=== PATIENT | male | born 1970 | race Caucasian/White ===

== ENCOUNTER 2024-07-05 18:40 | Emergency (ER) | payer OTHER, SELFPAY ==
[2024-07-05 18:41] VITALS: BP 158/100; PULSE 63; RESP 18; TEMP 36.8; O2SAT 100; BMI 45.3
[2024-07-05 18:45] VITALS: BP 158/100; PULSE 63; RESP 16; TEMP 36.8; O2SAT 100
--- NOTE | 2024-07-05 18:48 | RAD_ITS ---
PROCEDURE: FINGER(S) MIN 2 VIEWS 07/05/2024 REASON FOR EXAM: 53-year-old male, 5TH FINGER SWELLING x1 week TECHNIQUE: 3 view(s) of the left 5th finger COMPARISON: None. FINDINGS: Bones: No acute osseous fracture. No aggressive osseous lesions. Joints: Normal alignment. Joint spaces preserved. No arthropathic features. Soft tissues: No radiopaque foreign body. RAD/Finger(s) Min 2 Views IMPRESSION: NEGATIVE FINGER SERIES Reading Location: [id number]
--- NOTE | 2024-07-05 18:49 | EDS_ITS ---
HPI <DELMI Larose - Last Filed: 07/05/24 20:35> History of Present Illness Chief Complaint: Upper Extremity Injury Narrative Narrative: Patient resenting today with swelling to his left fifth finger he has had for over a week. He went to urgent care today and they recommended he come here for evaluation for possible infection. He denies any injury to his finger. He did have a small abrasion just below his nailbed several days prior to the finger beginning to swell and that did resolve. He is right-handed. He has had no associated fevers or chills. He reports that he is healthy otherwise with no chronic medical conditions. PFSH <DELMI Larose - Last Filed: 07/05/24 20:35> [facility] Medical History no medical history Home Medications ?Medication ?Instructions ?Recorded ?Last Taken ?Type clindamycin HCl 300 mg capsule 300 mg PO Q6H 7 days #2 7 CAPSULES 07/05/24 Unknown Rx (Cleocin HCl) Allergy/AdvReac Type Severity Reaction Status Date / Time Penicillins (PCN) Allergy Severe Anaphylaxis Verified 07/05/24 18:40 Family History no significant family his Surgical History no surgical history Social History Smoking Status: Never smoker ROS <DELMI Larose - Last Filed: 07/05/24 20:35> ROS ED Constitutional Constitutional ED: Denies chills or fever(s) Cardiovascular Cardiovascular: Denies chest pain Respiratory/Chest Respiratory/Chest: Denies dyspnea Musculoskeletal Musculoskeletal: Reports arthralgias Integumentary Denies abscess, Abrasions or rash Neurologic Neurologic: Denies weakness EXAM <DELMI Larose - Last Filed: 07/05/24 20:35> Physical Exam Const Vital Signs: 07/05/24 18:41 07/05/24 18:45 Temperature 98.3 F 98.3 F Temperature Source Temporal Oral Pulse Rate 63 63 Respiratory Rate 18 16 Blood Pressure 158/100 H 158/100 H Blood Pressure Mean 119 119 Pulse Ox 100 100 Oxygen Delivery Method Room Air Room Air Positive well nourished, well developed and no apparent distress General Appearance ED: well developed HEENT Reports normocephalic and head/scalp atraumatic Mouth ED: Yes moist mucous membranes normal Eyes PERRL and EOMs intact bilaterally Neck full ROM and supple Chest Wall inspection of chest normal Resp normal respiratory effort and clear to auscultation bilaterally Cardio regular rate and regular rhythm GI soft to palpation, non-tender, non-distended and no masses Back/Spine normal ROM and normal to inspection Extremity full ROM Extremity Narrative: Edema to the left fifth finger without any erythema, warmth, fluctuance, nor overlying wounds. Patient is able to flex and extend at the MCP and PIP joints decreased range of motion at the DIP joint due to swelling. Minimal pain to palpation to the left fifth middle phalanx. Left radial pulse 2+, good cap refill, sensation intact. Neuro oriented x3, CN's II-XII intact bilaterally, moves all extremities, no focal motor deficits and no sensory deficits noted Sensorium / Orientation: awake and alert Psych mental status grossly normal and thought process normal Skin no rashes or lesions noted and no wounds [facility] <DELMI Larose - Last Filed: 07/05/24 20:35> [facility] Narrative Medical decision making narrative: Patient presenting today with swelling to the left pinky finger he has had for about 9 days. No known injury to the area. No open wounds or obvious signs of infection to the finger. He is otherwise neurovascularly intact. X-ray will be obtained. X-ray of the finger obtained to assess for foreign body/fracture and is negative. The attending did speak with Dr. Belle who recommends antibiotics to cover for cellulitis and having him follow-up in the office tomorrow. He will be started on clindamycin with first dose here. Exam is not consistent with acute flexor tenosynovitis, return instructions were discussed with him and patient discharged home in stable condition. I have personally performed a face to face assessment of the patient and have reviewed the LILA Note. I performed a substantive portion of the visit including all aspects of the following. My santiago findings include: History is [patient presents with pain and swelling to his right small finger x 1 week. He denies injury. States that he had a small scratch to the dorsum of the distal phalanx just proximal to the nail but did not think much of it and that resolved. 7 hard time flexing the digit at the DIP joint. Denies any other injuries. 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 He does have history of gout but never had in the hands.] Exam is [ESTEBAN, EOMI. Cranial nerves II through XII grossly intact. TMs clear. Mucous membranes moist. No adenopathy. Cardiovascular-regular rate and rhythm without murmur or ectopy Lungs-clear to auscultation, chest wall stable without crepitus or subcu emphysema Abdomen-normoactive bowel sounds, soft, nontender, no rebound or rigidity, no peritoneal signs. Extremities-intact ?4, normal range of motion, normal pulses, atraumatic]. Left hand-evaluation of the small finger does reveal some soft tissue swelling at the DIP joint with tenderness along the flexor tendon. Decreased range of motion at the DIP joint. No significant cellulitic changes noted. Neurovascular intact. Medical Decison Making [patient with pain and swelling to the DIP joint of the left small finger. No trauma. X-rays of the finger on my interpretation showed no foreign bodies or abnormalities. I discussed case with Dr. Belle and sent pictures. It is felt that we can at least initially manage him with p.o. antibiotics and he can see him in the hand clinic tomorrow. Patient really does not have pain with axial loading of the joint. Patient describes the pain more in the soft tissues rather than in the bony structures or joint itself.] Other additions or changes: [None] <Dr. Rupal Altman, DO - Last Filed: 07/05/24 19:12> [facility] Narrative Medical decision making narrative: Patient presenting today with swelling to the left pinky finger he has had for about 9 days. No known injury to the area. No open wounds or obvious signs of infection to the finger. He is otherwise neurovascularly intact. X-ray will be obtained. I have personally performed a face to face assessment of the patient and have reviewed the LILA Note. I performed a substantive portion of the visit including all aspects of the following. My santiago findings include: History is [patient presents with pain and swelling to his right small finger x 1 week. He denies injury. States that he had a small scratch to the dorsum of the distal phalanx just proximal to the nail but did not think much of it and that resolved. 7 hard time flexing the digit at the DIP joint. Denies any other injuries. 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 He does have history of gout but never had in the hands.] Exam is [BRODERICKPERRLA, EOMI. Cranial nerves II through XII grossly intact. TMs clear. Mucous membranes moist. No adenopathy. Cardiovascular-regular rate and rhythm without murmur or ectopy Lungs-clear to auscultation, chest wall stable without crepitus or subcu emphysema Abdomen-normoactive bowel sounds, soft, nontender, no rebound or rigidity, no peritoneal signs. Extremities-intact ?4, normal range of motion, normal pulses, atraumatic]. Left hand-evaluation of the small finger does reveal some soft tissue swelling at the DIP joint with tenderness along the flexor tendon. Decreased range of motion at the DIP joint. No significant cellulitic changes noted. Neurovascular intact. Medical Decison Making [patient with pain and swelling to the DIP joint of the left small finger. No trauma. X-rays of the finger on my interpretation showed no foreign bodies or abnormalities. I discussed case with Dr. Belle and sent pictures. It is felt that we can at least initially manage him with p.o. antibiotics and he can see him in the hand clinic tomorrow. Patient really does not have pain with axial loading of the joint. Patient describes the pain more in the soft tissues rather than in the bony structures or joint itself.] Other additions or changes: [None] Discharge Plan Triage Chief Complaint: Upper Extremity Injury ED Midlevel Provider: Lazara Zhang ED Provider: Rupal Altman Dx/Rx/DC Orders Clinical Impression: Cellulitis of finger Instructions: ED Cellulitis Prescriptions: New clindamycin HCl [Cleocin HCl] 300 mg capsule 300 mg PO Q6H 7 Days Qty: 27 0RF Primary Care Provider: Janie Steel Referrals: Janie Steel MD [Primary Care Provider] - Rylan Belle MD [Med Staff - Active Staff] - 1 Day for another exam Activity Restrictions/Additional Instructions: Follow-up with Dr. Belle, return for any worsening symptoms, fevers, or chills. Print Language: Maori Disposition Disposition: Home, Self Care Discharge Date/Time: 07/05/24 19:23
[2024-07-05] MEDS: Clindamycin HCl 150 MG Capsule 450 MG PO (19:21)
[2024-07-05 19:22] VITALS: BP 158/100; PULSE 63; RESP 16; TEMP 36.8; O2SAT 100
== END 2024-07-05 19:23 | disposition home or self-care (01) ==
PROVIDERS: Emergency Provider Emergency Medicine; PCP Family Medicine; Referring Provider Emergency Medicine; Visit Provider Emergency Medicine
DX: L03.012 Cellulitis of left finger (principal)
CPT/HCPCS: 73140; 99282

== ENCOUNTER 2025-03-27 07:12 | Emergency (ER) | payer OTHER, SELFPAY ==
[2025-03-27 07:13] VITALS: BP 167/98; PULSE 62; RESP 18; TEMP 36.6; O2SAT 97; BMI 44.1
--- NOTE | 2025-03-27 07:30 | CT_ITS ---
PROCEDURE: BRAIN/HEAD WITHOUT CONTRAST 03/27/2025 REASON FOR EXAM: Clinical history of hypertension TECHNIQUE: Procedure Code: CTBR Modality: CT Procedure: BRAIN/HEAD WITHOUT CONTRAST Coronal and Sagittal reconstruction series were provided. One or more dose reduction techniques were used (e.g., Automated exposure control, adjustment of the mA and/or kV according to patient size, use of iterative reconstruction technique. RADIATION DOSE SUMMARY: DLP: 812.98 MGycm COMPARISON: None available. FINDINGS: No acute hemorrhage. No acute infarct. No significant mass effect or brain herniation. The ventricular system and sulci/fissures are within normal limits of size and configuration for the patient's stated age. No extra-axial fluid collection. The basal cisterns are patent. The mastoid air cells are clear. Volume loss of the right maxillary sinus. Polypoid mucosal thickening in the left maxillary sinus. Right nasal septal deviation and spur. The calvarium appears intact. CT/Brain/Head without Contrast IMPRESSION: No CT evidence of acute intracranial hemorrhage, infarct, or significant mass e ffect. Reading Location: [id number]
--- NOTE | 2025-03-27 07:31 | EKG12_ITS ---
Test Reason : HTN Blood Pressure : */* mmHG Vent. Rate : 60 BPM Atrial Rate : 60 BPM P-R Int : 150 ms QRS Dur : 98 ms QT Int : 394 ms P-R-T Axes : 13 24 33 degrees QTcB Int : 394 ms Normal sinus rhythm Normal ECG Confirmed by Frandy Odom (Alberto), editor greeting card HEIKE MORAES ([id number]) on 03/29/2025 11:32:29 AM Also confirmed by Frandy Odom (Alberto), editor greeting card HEIKE MORAES ([id number]) on 03/30/2025 10:56:53 AM Referred By: EVELYN Confirmed By: Frandy Odom
[2025-03-27] MEDS: Tetracaine 0.5% Ophthalmic Bottle 1 DRP OPHTHALMIC (07:39)
[2025-03-27 07:52] LABS: Hematocrit 44.9 % (40-54); Hemoglobin 14.8 g/dL (13.0-16.5); Immature Granulocytes Count 0.020 X10^3/uL (0.0-0.0); Mean Corp Hgb Conc 33.0 g/dL (32-36); Mean Corpuscular Volume 86.7 fL (80-94); Mean Platelet Vol. 10.6 fl (6.2-12.0); NRBC Flagged by Analyzer 0 % (0-5); POSITIVE COUNT YES; RBC Distribution Width CV 13.1 % (11.6-14.6); RBC Distribution Width SD 41.1 fl (35.1-43.9); Red Blood Count 5.18 M/mm3 (4.6-6.2); White Blood Count 7.0 K/mm3 (4.4-11.0)
--- NOTE | 2025-03-27 07:55 | RAD_ITS ---
PROCEDURE: CHEST PA AND LATERAL 03/27/2025 REASON FOR EXAM: Clinical history of hypertension TECHNIQUE: Procedure Code: RADCXR Modality: DX Procedure: CHEST PA AND LATERAL COMPARISON: None available. FINDINGS: No focal lung consolidation, pneumothorax, or pleural effusion. The cardiomediastinal silhouette is within normal limits. The jv are within normal limits. Eventration of the left hemidiaphragm. An irregularly-shaped radiodensity overlying the anterior right 6th rib may reflect a bone island. Degenerative changes of the thoracic spine. RAD/Chest PA and Lateral IMPRESSION: No radiographic evidence of acute cardiopulmonary pathology. Reading Location: [id number]
--- NOTE | 2025-03-27 07:58 | EX.ED.DYSGE1 ---
HPI History of Present Illness Chief Complaint: Hypertension Narrative Narrative: Chief complaint and HPI: 54-year-old male with past medical history of HTN, ADHD on guanfacine presents for evaluation of symptomatic HTN. Patient states that he was previously on a blood pressure medication but this was stopped given that the PCP was using guanfacine as a dual therapy for his HTN and ADHD. Patient states for the past several months he has been noticing an increase in his blood pressure. States has been in the 160s. Patient states he did not follow-up with his primary care physician as he was waiting for his next appointment. Patient states since the elevation in his blood pressure he has been getting intermittent headaches, bilateral eye pressure with occasional blurry vision. He also endorses intermittent tinnitus. He denies any fever, chills, URI symptoms, chest pain. Patient states he has not seen the eye doctor since about October. Review of systems: See HPI Medications: As listed on the chart Allergies: As listed on the chart PFSH: Per chart Vital signs: As listed on the chart. Reviewed. Physical exam: Gen: A&O x3, NAD Head: Normocephalic, atraumatic Eye: No periorbital swelling or ecchymosis, no proptosis, PERRL, EOMI intact, no pain with extra ocular movements, no lacerations, no sclera chemosis or injection, no foreign body, no enophthalmos. Cornea clear, optic nerve with sharp margins, macula normal, no retinal hemorrhages. Intraocular pressures 17 bilaterally. ENT: TMs clear BL, moist mucous membranes, sinuses nontender Neck: Trachea midline, No JVD, full range of motion CV: RRR, no murmurs, no peripheral edema Resp: Lungs CTA BL, no w/r/c GI: Abd soft, non-distended, non-tender, no r/r/g Musc: Full ROM, no deformity Skin: Warm, dry Neuro: Alert, oriented, grossly intact, sensation intact Psych: Cooperative, appropriate mood and affect [facility] Medical History (Updated 03/27/25 @ 07:22 by Greta Alejo) Non-smoker Hypertension Cellulitis of finger Home Medications ?Medication ?Instructions ?Recorded ?Last Taken ?Type clindamycin HCl 300 mg capsule 300 mg PO Q6H 7 days #27 CAPSULES 07/05/24 Unknown Rx (Cleocin HCl) Allergy/AdvReac Type Severity Reaction Status Date / Time Penicillins (PCN) Allergy Severe Anaphylaxis Verified 03/27/25 07:16 Social History Smoking Status: Never smoker EXAM Physical Exam Const Vital Signs: 03/27/25 07:13 03/27/25 07:22 Temperature 97.8 F Temperature Source Temporal Pulse Rate 62 Respiratory Rate 18 Respiratory Pattern Normal Blood Pressure 167/98 H Blood Pressure Mean 121 Pulse Ox 97 Oxygen Delivery Method Room Air MDM MDM MDM Narrative Medical decision making narrative: 54-year-old male with past medical history of HTN, ADHD on guanfacine presents for evaluation of symptomatic HTN. Patient states that he was previously on a blood pressure medication but this was stopped given that the PCP was using guanfacine as a dual therapy for his HTN and ADHD. Patient states for the past several months he has been noticing an increase in his blood pressure. States has been in the 160s. Patient states since the elevation in his blood pressure he has been getting intermittent headaches, bilateral eye pressure with occasional blurry vision. He also endorses intermittent tinnitus. On presentation, patient no acute distress. Vitals are normal other than mild hypertension at 167/98. See physical exam findings. Differential diagnosis includes but is not limited to hypertension urgency, hypertension emergency, intracranial abnormality, electrolyte abnormality, arrhythmia. Physical exam is not consistent with glaucoma. Eye exam unremarkable. Patient needs to follow-up with an eye doctor. He confirmed understanding. HTN workup ordered including CT head. Will give 5 mg hydralazine for the blood pressure. CT of the brain shows no acute abnormality. Patient's visual acuity is 20/25 bilaterally, 20/40 left, 20/30 right. Patient again needs to see the eye doctor. CBC unremarkable. BNP unremarkable. CMP unremarkable. Troponin unremarkable. UA negative for UTI or protein. Patient's symptoms are likely secondary to hypertension. Will start him on hydrochlorothiazide as he believes he had this in the past. Will start him on 12.5 mg daily. Follow-up with his primary care physician. Monitor his blood pressure at home. He needs to follow-up with the eye doctor. Return precautions explained. He confirmed understand the plan. Patient will discharge home. EKG: Interpreted by me/EM physician: EKG shows normal sinus rhythm without any acute ischemic changes. Heart rate 60. QTc normal. Diagnostic: Interpreted by me/EM physician: Chest x-ray without pneumonia, effusion, cardiomegaly, pneumothorax. Radiology in agreement. Per radiology an irregularly-shaped radiodensity overlying the anterior right sixth rib may reflect a bone island. Impression: 1 Hypertension urgency 2.History of hypertension Lab Data Labs: Laboratory Results - last 24 hr 03/27/25 03/27/25 03/27/25 07:35 08:17 09:14 WBC 7.0 RBC 5.18 Hgb 14.8 Hct 44.9 MCV 86.7 MCH 28.6 MCHC 33.0 RDW Std Deviation 41.1 RDW Coeff of Hunter 13.1 Plt Count MPV 10.6 Immature Gran % (Auto) 0.300 Neut % (Auto) 57.1 Lymph % (Auto) 31.9 Isabella % (Auto) 7.4 Eos % (Auto) 2.6 Baso % (Auto) 0.7 Absolute Neuts (auto) 4.0 Absolute Lymphs (auto) 2.23 Nucleated RBC % 0 Differential Comment SCANNED Platelet Estimate ADEQUATE RBC Morphology NORM C+C Sodium Cancelled Cancelled 137 Potassium Cancelled Cancelled 4.1 Chloride Cancelled Cancelled 103 Carbon Dioxide Cancelled Cancelled 24.1 Anion Gap Cancelled Cancelled 10 BUN Cancelled Cancelled 15 Creatinine Cancelled Cancelled 1.17 Estim Creat Clear Calc Cancelled 104.84 Est GFR (MDRD) Non-Af Cancelled Cancelled 74 BUN/Creatinine Ratio Cancelled Cancelled 12.7 Glucose Cancelled Cancelled 93 Calcium Cancelled Cancelled 8.7 Total Bilirubin Cancelled Cancelled 0.72 AST Cancelled Cancelled 21 ALT Cancelled Cancelled 15 Alkaline Phosphatase Cancelled Cancelled 77 Troponin T High Sens Cancelled Cancelled < 6 NT pro BNP II 40 Total Protein Cancelled Cancelled 7.6 Albumin Cancelled Cancelled 3.9 Globulin Cancelled Cancelled 3.7 Albumin/Globulin Ratio Cancelled Cancelled 1.1 Radiography Diagnostic Testing: Clinical Impression(s) from Imaging Studies Brain CT 03/27/25 07:30 IMPRESSION: No CT evidence of acute intracranial hemorrhage, infarct, or significant mass effect. Reading Location: [id number] Chest X-Ray 03/27/25 07:55 IMPRESSION: No radiographic evidence of acute cardiopulmonary pathology. Reading Location: [facility] Discharge Plan Triage Chief Complaint: Hypertension ED Provider: Chas Olivarez Dx/Rx/DC Orders Prescriptions: No Action clindamycin HCl [Cleocin HCl] 300 mg capsule 300 mg PO Q6H 7 Days Qty: 27 0RF Primary Care Provider: Janie Steel Referrals: Janie Steel MD [Primary Care Provider, Medical] Print Language: Bengali
--- OUTSIDE RECORDS SUMMARY | 2025-03-27 08:05 | XMS RPT_ITS | CCD ---
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 Aneudy Foster Primary Care Provider Dr. Rupal Altman DO Referring Provider Dr. Rupal Altman DO Emergency Provider [phone] Aneudy Rooney MD Primary Care Provider ANEUDY ROONEY Primary Care Unavailable Aneudy Rooney MD Primary Care Provider ANEUDY ROONEY Primary Care Unavailable ANEUDY ROONEY Primary Care Unavailable NIA SYED Attending Unavailable NIA SYED Referring Unavailable ANEUDY ROONEY Primary Care Unavailable ANEUDY ROONEY Attending Unavailable ANEUDY ROONEY Primary Care Unavailable ANEUDY ROONEY Attending Unavailable ANEUDY ROONEY Primary Care Unavailable ANEUDY ROONEY Attending Unavailable ANEUDY ROONEY Primary Care Unavailable ANEUDY ROONEY Attending Unavailable ANEUDY ROONEY Primary Care Unavailable ANEUDY ROONEY Attending Unavailable ANEUDY ROONEY Primary Care Unavailable ANEUDY ROONEY Attending Unavailable ANEUDY ROONEY Primary Care Unavailable Aneudy Rooney Primary Care Unavailable Rylan Mosley Attending Unavailable Lazara Zhang Referring Unavailable Aneudy Rooney Primary Care Unavailable Rylan Mosley Attending Unavailable Aneudy Rooney Referring Unavailable Aneudy Rooney Primary Care Unavailable Rupal Altman Referring Unavailable Rupal Altman Attending Unavailable Aneudy Rooney Primary Care Unavailable Rylan Mosley Attending Unavailable Aneudy Rooney Referring Unavailable Allergies Allergy Classification Reported Allergen(s) Allergy Type Date of Onset Reaction(s) Facility (10 sources) Penicillins; Translations: [PENICILLINS] Propensity to adverse reactions 5 Anaphylaxis, Hives, Shortness of breath [facility] Work Phone: (1 source) Penicillins Allergy to substance 5 Anaphylaxis [facility] (3 sources) Penicillins Propensity to adverse reactions 5 Anaphylaxis, Hives, Shortness of breath [facility] Work Phone: (1 source) Penicillins Drug allergy (disorder) 5 [facility] Repository Medications Current Medications Medication Drug Class(es) Dates Sig (Normalized) Sig (Original) amLODIPine 5 mg oral tablet (3 sources) Dihydropyridine Calcium Channel Braxton Start: 02-26-2024 End: 10-18-2024 take 1 tablet by mouth once daily amLODIPine (Norvasc) 5 mg tablet Indications: Primary hypertension Take 1 tablet (5 mg) by mouth once daily. 30 tablet 5 02/26/2024 10/18/2024 Discontinued (Med List Cleanup) clindamycin 300 mg oral capsule (1 source) Lincosamide Antibacterial Start: 07-05-2024 take 1 capsule by mouth every six hours Clindamycin Hcl (Cleocin Hcl) 300 mg capsule Active 300 mg PO EVERY 6 HOURS 27 July 05, 2024 12:00am colchicine 0.6 mg oral tablet (5 sources) Start: 11-12-2023 End: 10-18-2024 colchicine 0.6 mg tablet Indications: Acute idiopathic gout of left foot Take 1 tablet (0.6 mg) by mouth 2 times a day as needed for muscle/joint pain (twice daily until flare resolves). 60 tablet 11/12/2023 10/18/2024 Discontinued (Med List Cleanup) ergocalciferol 1.25 mg oral capsule (9 sources) Provitamin D2 Compound Start: 06-09-2016 End: 10-18-2024 ergocalciferol (Vitamin D-2) 1.25 MG (86842 UT) capsule One cap twice a week. 06/09/2016 10/18/2024 Discontinued (Med List Cleanup) Comment on above: One cap twice a week . escitalopram 20 mg oral tablet (6 sources) Serotonin Reuptake Inhibitor Start: 02-02-2024 End: 10-18-2024 take 1 tablet by mouth once daily escitalopram (Lexapro) 20 mg tablet Indications: Mild episode of recurrent major depressive disorder , Anxiety Take 1 tablet (20 mg) by mouth once daily. 30 tablet 2 02/02/2024 10/18/2024 Discontinued (Med List Cleanup) Start: 01-14-2024 End: 07-12-2024 take 1 tablet by mouth once daily escitalopram (Lexapro) 10 mg tablet Indications: Anxiety , 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) Take 1 tablet (10 mg) by mouth once daily. 30 tablet 2 01/14/2024 02/02/2024 Discontinued (Reorder) FLUoxetine 20 mg oral capsule (5 sources) Serotonin Reuptake Inhibitor Start: 09-23-2022 End: 01-14-2024 take 1 capsule by mouth once daily FLUoxetine (PROzac) 20 mg capsule Take 1 capsule (20 mg) by mouth once daily. 09/23/2022 01/14/2024 Discontinued (Therapy completed) Start: 06-07-2016 take 1 capsule by mo [facility] once daily FLUoxetine HCl (PROZAC) 40 mg capsule Indications: Recurrent major depression in partial remission Take 1 capsule by mouth once daily. 90 capsule 3 06/07/2016 Active Comment on above: Take 1 capsule by mo [facility] once daily. gabapentin 300 mg oral capsule (9 sources) Anti-epileptic Agent Start: 11-15-2024 End: 11-15-2024 take 1 capsule by mouth once daily at bedtime gabapentin (Neurontin) 300 mg capsule Indications: Restless leg syndrome Take 1 capsule (300 mg) by mouth once daily at bedtime. 90 capsule 11/15/2024 11/15/2024 Discontinued (Reorder) Start: 03-29-2017 End: 02-26-2024 take 1 tablet by mouth once daily at bedtime gabapentin (Neurontin) 600 mg tablet Indications: Restless leg syndrome TAKE 1 TABLET BY MOUTH DAILY AT BEDTIME 30 tablet 2 12/29/2023 02/26/2024 Discontinued (Therapy completed) Comment on above: Take 1 tablet by vitaly daily at bedtime for 11 days. guanFACINE 1 mg oral tablet (4 sources) Central alpha-2 Adrenergic Agonist Start: End: take 0.5 tablet by mouth once daily at bedtime guanFACINE (Tenex) 1 mg tablet Indications: Primary hypertension , Other specified attention deficit hyperactivity disorder (ADHD) Take 0.5 tablets (0.5 mg) by mouth once daily at bedtime. 7 tablet 10/18/2024 11/15/2024 Discontinued (Med List Cleanup) Start: 10-18-2024 End: 10-18-2025 take 1 tablet by mouth once daily at bedtime guanFACINE (Tenex) 1 mg tablet Indications: Primary hypertension , Other specified attention deficit hyperactivity disorder (ADHD) Take 1 tablet (1 mg) by mouth once daily at bedtime. 30 tablet 2 10/18/2024 10/18/2025 Active hydroCHLOROthiazide 12.5 mg oral tablet (4 sources) Thiazide Diuretic Start: 04-10-2018 End: 07-15-2023 take 1 tablet by mouth once daily hydroCHLOROthiazide (Microzide) 12.5 mg tablet Take 1 tablet (12.5 mg) by mouth once daily. 0 04/10/2018 07/15/2023 Discontinued (Therapy completed) Start: 09-27-2016 take 1 capsule by [facility] once daily Hydrochlorothiazide 12.5 mg capsule Take 1 capsule by mouth once daily. 30 capsule 5 09/27/2016 Active Comment on above: Take 1 capsule by [facility] once daily. indomethacin 25 mg oral capsule (6 sources) Nonsteroidal Anti-inflammatory Drug Start: 06-24-19 24 End: 06-24-19 25 take 2 capsules by mouth three times daily as needed for pain indomethacin (Indocin) 25 mg capsule Indications: Acute idiopathic gout of left foot Take 2 capsules (50 mg) by mouth 3 times a day as needed (pain). With food 30 capsule 1 06/24/2023 06/23/2024 Active losartan potassium 100 mg oral tablet (2 sources) Angiotensin 2 Receptor Braxton Start: 08-31-19 17 take 1 tablet by mouth once daily losartan (COZAAR) 100 mg tablet Indications: Essential hypertension Take 1 tablet by mouth once daily. 30 tablet 5 08/30/2016 Active Comment on above: Take 1 tablet by [facility] once daily. pregabalin 150 mg oral capsule (2 sources) Start: 03-16-20 End: 04-09-19 25 take 1 capsule by mouth once daily at bedtime pregabalin (Lyrica) 150 mg capsule Indications: Restless leg syndrome Take 1 capsule (150 mg) by mouth once daily at bedtime. 30 capsule 03/16/2024 04/09/2024 Discontinued (Side effects) Start: 02-26-2024 take 1 capsule by mo [facility] once daily at bedtime, then take 2 capsules by mouth once daily pregabalin (Lyrica) 50 mg capsule Indications: Restless leg syndrome Take 1 capsule (50 mg) by mouth once daily at bedtime. May increase to two nightly after one week. 30 capsule 02/26/2024 Active rOPINIRole 1 mg oral tablet (2 sources) Nonergot Dopamine Agonist Start: 03-29-2017 take 1 tablet by mouth once daily at bedtime rOPINIRole (REQUIP) 1 mg tablet Indications: Restless leg syndrome Take 1 tablet by mouth daily at bedtime. 10 tablet 3 03/29/2017 Active Comment on above: Take 1 tablet by vitaly th daily at bedtime. traMADol hydrochloride 50 mg oral tablet (2 sources) Opioid Agonist Start: 06-07-2016 take 1 tablet by mouth twice daily as needed traMADol (ULTRAM) 50 mg tablet Indications: Lumbar disc herniation Take 1 tablet by mouth twice daily as needed. 60 tablet 06/07/2016 Active Comment on above: Take 1 tablet by vitaly th twice daily as needed. vitamin b12 1 mg oral tablet (2 sources) Vitamin B12 Start: 11-11-2014 take 1 tablet by mouth once daily cyanocobalamin (VITAMIN B-12) 1,000 mcg tab Take 1 tablet by mouth once daily. 0 11/11/2014 Active Comment on above: Take 1 tablet by vitaly th once daily. Problems Active Problems Problem Classification Problem Date Documented Da te Episodic/Chronic Anxiety disorders (15 sources) Anxiety; Translations: [Anxiety disorder, unspecified] Onset: 06-24-2023 06-24-2023 Chronic Asthma (2 sources) Allergic asthma; Translations: [Unspecified asthma, uncomplicated] Onset: 10-31-2014 09-27-2016 Chronic Attention-deficit, conduct, and disruptive behavior disorders (1 source) Attention deficit hyperactivity disorder; Translations: [Attention-deficit hyperactivity disorder, other type] 10-18-2024 Chronic Essential hypertension (19 sources) Essential hypertension; Translations: [Essential (primary) hypertension] Onset: 10-31-2014 09-27-2016 Chronic Gastroduodenal ulcer (except hemorrhage) (2 sources) Peptic ulcer; Translations: [Peptic ulcer, site unspecified, unspecified as acute or chronic, without hemorrhage or perforation] Onset: 12-31-2006 12-06-2015 Chronic Gout and other crystal arthropathies (20 sources) Primary gout; Translations: [Idiopathic gout, left ankle and foot] Onset: 06-24-2023 Resolved: 01-14-2024 06-24-2023 Chronic Headache; including migraine (2 sources) Migraine variants; Translations: [Other migraine, not intractable, without status migrainosus] Onset: 06-18-2005 10-31-2014 Chronic Mood disorders (10 sources) Recurrent major depression in partial remission; Translations: [Major depressive disorder, recurrent, in partial remission] Onset: 01-17-2006 05-04-2015 Chronic Nutritional deficiencies (13 sources) Vitamin D deficiency; Translations: [Vitamin D deficiency, unspecified] Onset: 08-10-2013 10-31-2014 Chronic Osteoarthritis (2 sources) Degenerative joint disease involving multiple joints; Translations: [Polyosteoarthritis, unspecified] Onset: 04-08-2007 09-27-2016 Chronic Other connective tissue disease (1 source) Swelling of finger ; Translations: [Other specified soft tissue disorders] 07-05-2024 Episodic Other ear and sense organ disorders (1 source) Impacted cerumen of bilateral ears; Translations: [Impacted cerumen, bilateral] 02-26-2024 Episodic Other endocrine disorders (8 sources) Reactive hypoglycemia; Translations: [Other hypoglycemia] Onset: 06-24-2023 06-24-2023 Chronic Other gastrointestinal disorders (2 sources) Malabsorption syndrome; Translations: [Intestinal malabsorption, unspecified] Onset: 10-31-2014 09-27-2016 Chronic Other gastrointestinal disorders (2 sources) Bariatric surgery status; Translations: [Bariatric surgery status] Onset: 06-24-2023 Episodic Other hereditary and degenerative nervous system conditions (16 sources) Restless legs; Translations: [Restless legs syndrome] Onset: 10-27-2010 10-31-2014 Chronic Other hereditary and degenerative nervous system conditions (2 sources) Restless legs syndrome; Translations: [Restless legs syndrome] Onset: 06-24-2023 Chronic Other nutritional; endocrine; and metabolic disorders (3 sources) Body mass index 40+ - severely obese; Translations: [Morbid (severe) obesity due to excess calories] Onset: 04-18-2006 09-02-2017 Chronic Other nutritional; endocrine; and metabolic disorders (8 sources) Intolerance to lactose; Translations: [Lactose intolerance, unspecified] Onset: 06-24-2023 06-24-2023 Chronic Residual codes; unclassified (2 sources) Obstructive sleep apnea syndrome; Translations: [Obstructive sleep apnea (adult) (pediatric)] Onset: 12-06-2015 09-27-2016 Chronic Skin and subcutaneous tissue infections (3 sources) Cellulitis of finger; Translations: [Cellulitis of unspecified finger] Onset: 11-01-2024 07-05-2024 Episodic Spondylosis; intervertebral disc disorders; other back problems (2 sources) Prolapsed lumbar intervertebral disc; Translations: [Other intervertebral disc displacement, lumbar region] Onset: 03-30-2013 09-27-2016 Chronic Sprains and strains (1 source) Unspecified sprain of unspecified finger, initial encounter; Translations: [Unspecified sprain of unspecified finger, initial encounter] Onset: 11-01-2024 Episodic Past or Other Problems Problem Classification Problem Date Documented Da te Episodic/Chronic Nutritional deficiencies (2 sources) Cobalamin deficiency; Translations: [Deficiency of other specified B group vitamins] Onset: 11-11-2014 09-27-2016 Episodic Other connective tissue disease (2 sources) Pain in left lower limb; Translations: [Pain in left leg] Onset: 03-30-2013 09-27-2016 Episodic Other connective tissue disease (2 sources) Pain in left foot; Translations: [Pain in left foot] Onset: 11-10-2023 Episodic Other gastrointestinal disorders (14 sources) History of bypass of stomach; Translations: [Bariatric surgery status] Onset: 03-19-2013 09-27-2016 Episodic Other screening for suspected conditions (not mental disorders or infectious disease) (2 sources) Screening due; Translations: [Encounter for screening for lipoid disorders] Onset: 10-31-2014 10-31-2014 Episodic Residual codes; unclassified (2 sources) Insomnia; Translations: [Insomnia, unspecified] Onset: 06-07-2008 10-31-2014 Episodic Residual codes; unclassified (6 sources) At risk of heart disease; Translations: [Other specified personal risk factors, not elsewhere classified] Onset: 01-14-2024 01-14-2024 Episodic Spondylosis; intervertebral disc disorders; other back problems (10 sources) Backache; Translations: [Dorsalgia, unspecified] Onset: 01-17-2006 09-27-2016 Episodic Results Test Name Value Interpretation Reference Range Facility URIC ACIDon 10-15-2024 Urate [Mass/Vol] 8.9 mg/dL High 4.0-8.0 [facility] Comment on above: Order Comment: FASTI NG:YES FASTING: YES Result Comment: Ther apeutic target for gout patients: <6.0 mg/dL Performed By: #### 9 05 #### [facility] [address], [address] [place] [id number] Splicer Helper: Jarrell Apple MD CBC W Auto Differential pane l (Bld)on 10-14-2024 Basophils (Bld) [#/Vol] 0.06 x10*3/uL Normal 0.00-0.10 [facility] Comment on above: Performed By: #### 5 7021-8 #### DOMINIC SANCHEZ ([id number]) [facility] ([facility]) [address] [place] [address] Basophils/100 WBC (Bld) 0.9 % Normal 0.0-2.0 [facility] Comment on above: Performed By: #### 5 7021-8 #### DOMINIC SANCHEZ ([id number]) [facility] ([facility]) [address] [place] [address] Eosinophils (Bld) [#/Vol] 0.16 x10*3/uL Normal 0.00-0.70 [facility] Comment on above: Performed By: #### 5 7021-8 #### DOMINIC SANCHEZ ([id number]) [facility] ([facility]) [address] [place] [address] Eosinophils/100 WBC (Bld) 2.4 % Normal 0.0-6.0 [facility] Comment on above: Performed By: #### 5 7021-8 #### DOMINIC SANCHEZ ([id number]) [facility] ([facility]) [address] [place] [address] Erythrocyte distribution width (RBC) [Ratio] 13.6 % Normal 11.5-14.5 [facility] Comment on above: Performed By: #### 5 7021-8 #### DOMINIC SANCHEZ ([id number]) [facility] ([facility]) [address] [place] [address] Hematocrit (Bld) [Volume fraction] 46.6 % Normal 41.0-52.0 [facility] Comment on above: Performed By: #### 5 7021-8 #### DOMINIC SANCHEZ ([id number]) [facility] ([facility]) [address] [place] [address] Hemoglobin (Bld) [Mass/Vol] 14.9 g/dL Normal 13.5-17.5 [facility] Comment on above: Performed By: #### 5 7021-8 #### DOMINIC SANCHEZ ([id number]) [facility] ([facility]) [address] [place] [address] Immature granulocytes (Bld) [#/Vol] 0.02 x10*3/uL Normal 0.00-0.70 [facility] Comment on above: Performed By: #### 5 7021-8 #### DOMINIC SANCHEZ ([id number]) [facility] ([facility]) [address] [place] [address] Immature granulocytes/100 WBC (Bld) 0.3 % Normal 0.0-0.9 [facility] Comment on above: Result Comment: Lindsay ture Granulocyte Count (IG) includes promyelocytes, myelocytes and metamyelocytes but does not include bands. Percent differential counts (%) should be interpreted in the context of the absolute cell counts (cells/UL). Performed By: #### 5 7021-8 #### DOMINIC SANCHEZ ([id number]) [facility] ([facility]) [address] [place], [place] [id number] Lymphocytes (Bld) [#/Vol] 2.01 x10*3/uL Normal 1.20-4.80 [facility] Comment on above: Performed By: #### 5 7021-8 #### DOMNIIC SANCHEZ ([id number]) [facility] ([facility]) [address] [place] [address] Lymphocytes/100 WBC (Bld) 30.0 % Normal 13.0-44.0 [facility] Comment on above: Performed By: #### 7021-8 #### DOMINIC SANCHEZ ([id number]) [facility] ([facility]) [address] [place] [address] 74636 MCH (RBC) [Entitic mass] 28.0 pg Normal 26.0-34.0 [facility] Comment on above: Performed By: #### 7021-8 #### DOMNIIC SANCHEZ ([id number]) [facility] ([facility]) [address] [place] [address] 87941 MCHC (RBC) [Mass/Vol] 32.0 g/dL Normal 32.0-36.0 [facility] Comment on above: Performed By: #### 7021-8 #### DOMINIC SANCHEZ ([id number]) [facility] ([facility]) [address] [place] [address] MCV (RBC) [Entitic vol] 88 fL Normal 80-100 [facility] Comment on above: Performed By: #### 7021-8 #### DOMINIC SANCHEZ ([id number]) [facility] ([facility]) [address] [place] [address]3930 Monocytes (Bld) [#/Vol] 0.50 x10*3/uL Normal 0.10-1.00 [facility] Comment on above: Performed By: #### 5 7021-8 #### DOMINIC SANCHEZ ([id number]) [facility] ([facility]) [address] [place] [address] 95049 Monocytes/100 WBC (Bld) 7.5 % Normal 2.0-10.0 [facility] Comment on above: Performed By: #### 5 7021-8 #### DOMINIC SANCHEZ ([id number]) [facility] ([facility]) [address] [place] [address] 90687 Neutrophils (Bld) [#/Vol] 3.96 x10*3/uL Normal 1.20-7.70 [facility] Comment on above: Result Comment: Perc ent differential counts (%) should be interpreted in the context of the absolute cell counts (cells/uL). Performed By: #### 5 7021-8 #### DOMINIC SANCHEZ ([id number]) [facility] ([facility]) [address] [place] [address] 23615 Neutrophils/100 WBC (Bld) 58.9 % Normal 40.0-80.0 [facility] Comment on above: Performed By: #### 5 7021-8 #### DOMINIC SANCHEZ ([id number]) [facility] ([facility]) [address] [place] [address] 21615 Nucleated RBC/100 WBC (Bld) [Ratio] 0.0 /100 WBCs Normal 0.0-0.0 [facility] Comment on above: Performed By: #### 5 7021-8 #### DOMINIC SANCHEZ ([id number]) [facility] ([facility]) [address] [place] [address]1370 Platelets (Bld) [#/Vol] 248 x10*3/uL Normal 150-450 [facility] Comment on above: Performed By: #### 5 7021-8 #### DOMINIC SANCHEZ ([id number]) [facility] ([facility]) [address] [place] [address] 75609 RBC (Bld) [#/Vol] 5.32 x10*6/uL Normal 4.50-5.90 [facility] Comment on above: Performed By: #### 5 7021-8 #### DOMINIC SANCHEZ ([id number]) [facility] ([facility]) [address] [place] [address] 15197 WBC (Bld) [#/Vol] 6.7 x10*3/uL Normal 4.4-11.3 [facility] Comment on above: Performed By: #### 5 7021-8 #### DOMINIC SANCHEZ ([id number]) [facility] ([facility]) [address] [place] [address]802 Calcidiolon 10-14-2024 25-hydroxyvitamin D3 [Mass/Vol] 22 ng/mL Low 30-100 [facility] Comment on above: Order Comment: Defic iency: < 20 ng/ml Insufficiency: 20-29 ng/ml Sufficiency: 30-100 ng/ml This assay accurately quantifies the sum of Vitamin D3, 25-Hydroxy and Vitamin D2,25-Hydroxy. Performed By: #### 1 989-3 #### JAYA Olea ([id number]) [facility] ([facility]) [id number] [place] [address]654 Cobalaminson 10-14-2024 Cobalamin (Vitamin B12) [Mass/Vol] 405 pg/mL Normal 211-911 [facility] Comment on above: Performed By: #### 2 132-9 #### JAYA Olea ([id number]) [facility] ([facility]) [id number] [place] [address]9401 Comprehensive metabolic 2000 panelon 10-14-2024 Albumin BCP dye [Mass/Vol] 4.1 g/dL Normal 3.4-5.0 [facility] Comment on above: Performed By: #### 2 4323-8 #### DOMINIC SANCHEZ ([id number]) [facility] ([facility]) [facility] [place] [address] ALP [Catalytic activity/Vol] 76 U/L Normal 33-120 [facility] Comment on above: Performed By: #### 2 4323-8 #### DOMINIC SANCHEZ ([id number]) [facility] ([facility]) [facility] [place] [address] ALT With P-5'-P [Catalytic activity/Vol] 19 U/L Normal 10-52 [facility] Comment on above: Result Comment: Roma ents treated with Sulfasalazine may generate falsely decreased results for ALT. Performed By: #### 2 4323-8 #### DOMINIC SANCHEZ ([id number]) [facility] ([facility]) [facility] [place] [address] Anion gap [Moles/Vol] 10 mmol/L Normal 10-20 [facility] Comment on above: Performed By: #### 2 4323-8 #### DOMINIC SANCHEZ ([id number]) [facility] ([facility]) [address] [place] [address] 35092 AST With P-5'-P [Catalytic activity/Vol] 22 U/L Normal 9-39 [facility] Comment on above: Performed By: #### 2 4323-8 #### DOMINIC SANCHEZ ([id number]) [facility] ([facility]) [address] [place] [address] 16412 Bilirubin [Mass/Vol] 1.2 mg/dL Normal 0.0-1.2 [facility] Comment on above: Performed By: #### 2 432-8 #### DOMINIC SANCHEZ ([id number]) [facility] ([facility]) [address] [place] [address] 60038 Calcium [Mass/Vol] 8.9 mg/dL Normal 8.6-10.3 [facility] Comment on above: Performed By: #### 2 4322-8 #### DOMINIC SANCHEZ ([id number]) [facility] ([facility]) [address] [place] [address] 02416 Chloride [Moles/Vol] 103 mmol/L Normal 98-107 [facility] Comment on above: Performed By: #### 2 432-8 #### DOMINIC SANCHEZ ([id number]) [facility] ([facility]) [address] [place] [address] 97066 CO2 [Moles/Vol] 29 mmol/L Normal 21-32 [facility] Comment on above: Performed By: #### 2 4323-8 #### DOMINIC SANCHEZ ([id number]) [facility] ([facility]) [address] [place] [address] 53755 Creatinine [Mass/Vol] 1.18 mg/dL Normal 0.50-1.30 [facility] Comment on above: Performed By: #### 2 4323-8 #### DOMINIC SANCHEZ ([id number]) [facility] LAB ([facility]) [address] [place] [address] 19616 Glomerular filtration rate/1.73 sq M.predicted 74 mL/min/1.73m*2 Normal >60 [facility] Comment on above: Result Comment: Calc ulations of estimated GFR are performed using the 2020 CKD-EPI Study Refit equation without the race variable for the IDMS-Traceable creatinine methods. https://jasn.asnjournals.org/content//ASN.10328093 88 Performed By: #### 2 4323-8 #### DOMINIC SANCHEZ ([id number]) [facility] ([facility]) [address] [place] [address]14 Glucose [Mass/Vol] 89 mg/dL Normal 74-99 [facility] Comment on above: Performed By: #### 2 4323-8 #### DOMINIC SANCHEZ ([id number]) [facility] ([facility]) [address] [place] [address] 71082 Potassium [Moles/Vol] 4.0 mmol/L Normal 3.5-5.3 [facility] Comment on above: Performed By: #### 2 4323-8 #### DOMINIC SANCHEZ ([id number]) [facility] ([facility]) [address] [place] [address] 49178 Protein [Mass/Vol] 7.2 g/dL Normal 6.4-8.2 [facility] Comment on above: Performed By: #### 2 4323-8 #### DOMINIC SANCHEZ ([id number]) [facility] ([facility]) [address] [place] [address] 54087 Sodium [Moles/Vol] 138 mmol/L Normal 136-145 [facility] Comment on above: Performed By: #### 2 4323-8 #### DOMINIC SANCHEZ ([id number]) [facility] ([facility]) [address] [place] [address] 33995 Urea nitrogen [Mass/Vol] 16 mg/dL Normal 6-23 [facility] Comment on above: Performed By: #### 2 4323-8 #### DOMINIC SANCHEZ ([id number]) [facility] ([facility]) [address] [place] [address] 74063 Iron and Iron binding capaci ty panelon 10-14-2024 Iron [Mass/Vol] 56 ug/dL Normal 35-150 [facility] Comment on above: Performed By: #### 5 0190-8 #### DOMINIC SANCHEZ ([id number]) [facility] ([facility]) [address] [place] [address] 69810 Iron binding capacity [Mass/Vol] 386 ug/dL Normal 240-445 [facility] Comment on above: Performed By: #### 5 0190-8 #### DOMINIC SANCHEZ ([id number]) [facility] ([facility]) [address] [place] [address] 55627 Iron binding capacity.unsaturate d [Mass/Vol] 330 ug/dL Normal 110-370 [facility] Comment on above: Performed By: #### 5 0190-8 #### DOMINIC SANCHEZ ([id number]) [facility] ([facility]) [address] [place], [place] [id number] Iron saturation [Mass fraction] 15 % Low 25-45 [facility] Comment on above: Performed By: #### 5 0190-8 #### DOMINIC SANCHEZ ([id number]) [facility] ([facility]) [address] [place], [place] [id number] Plastic Surgery Visit Report on 07-16-2024 Plastic Surgery Visit Report [facility] Plastic Reconstructive Surgery [address], [address] [place] [id number] OFFICE VISIT Date of Service: 07/16/24 MR#: [id number] Acct: [id number] Name: CHELLE MOHAN Tonya Rep #: [id number] : 1970 Provider: Dr. Rylan Mosley MD Age/Sex: 53/M Location: [facility] Status: Signed Intake Vital Signs 07/05/24 18:41 07/16/24 09:05 Height 5 ft 11 in BP 136/90 H Blood Pressure Location Rt brachial Position Sitting Respiration 16 Pulse 68 Pulse Source Monitor Temp 98.4 F Temp Source Temporal Pulse Oximetry (%) 97 Oxygen Delivery Method room air Intake Visit Reasons: 1 W FU Chief Complaint: L hand small finger pain Allergies Penicillins (PCN) Allergy (Severe, Verified 07/09/24 08:42) Anaphylaxis [facility] Medical History Cellulitis of finger Social History Smoking Status: Never smoker HPI 1 W FU Details: Chelle Mohan is a delightful 53-year-old male with past medical history of gout (episodes in his great toe metatarsal phalangeal joint most frequently) for the past several years 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 Patient reports that on 26 June 2024 (Friday morning) he woke up with left small finger pain in and around the DIP joint. Patient denies any fevers or chills since then. He attempted to take colchicine on Friday, 28 June 2024, x 2 doses and this did not help. Patient went to the emergency department last night because it was just not getting better. At the emergency department last night, no labs were drawn, and there was concern for an isolated gout flare. X-ray . was reviewed and was unremarkable. No concern for septic joint per discussion on the phone with the emergency department. Out of precaution, patient was placed on course of clindamycin. Today patient reporting persistent pain in the location. He reports that the pain has been persistently dull and steady on the left DIP joint, and is worsened by movements and improved with rest. The pain has not gotten worse. There is no redness around the area but there is some swelling. He has not tried elevating it yet. Patient does not remember any trauma (maybe a small scratch a couple weeks ago on the surface of the small finger, but was very superficial like a paper cut). No deep puncture wounds. Patient also notably has a history of restless leg syndrome, which is subsequently led to him being wall/the headboard of the bed during his sleep. He thinks that it is possible that he may have jammed his finger in his sleep as he woke up with this pain. He is not a smoker. 09 July 2024: Patient noticed slight improvement of the swelling but similar pain. Asking today if this could be related to the way he holds his cell phone because he holds the cell phone in his hand with a radial to ulnar force on the small finger DIP joint. Patient also reporting that he has been taking ibuprofen (was unable to get the Naprosyn filled as this did not go through to the pharmacy). 16 July 2024: Patient has been wearing his splint. He states that the pain has improved with splinting and the Naproxen. He states that the swelling has improved. He states that he is having difficulty bending his DIP joint. Current Encounter, 16 July 2024: Patient noticed significant improvement of his small finger over the past week. No pain today. He still feels some crunching with ulnar and radial forces on the DIP joint but there is no pain associated with it. ROS General General: Yes good health; No fatigue or fever(s) HENMT HENMT: No rhinitis, sore throat/mouth sore, nasal congestion, contacts or glaucoma Musc Musculoskeletal: Yes joint pain and joint stiffness Neuro Neurological: No headache(s), No lightheadedness and No numbness Cardio Cardiovascular: No chest pain, pacemaker, fatigue or shortness of breat with exertion Psych Psychiatric: No depression, claustrophobia or anxiety Resp Respiratory: No spitting up, shortness of breath, sleep apnea, asthma, Cough or Smoker Gastro Gastrointestinal: No diarrhea, constipation, blood in stool, nausea, vomiting or abdominal bloating [place] Hematologic: No anemia, No bleeding and No abnormal bleeding Genitourinary: No urinary frequency, blood in urine or incontinence Exam Details Left upper Extremity Inspection: No residual swelling of the left small finger, no induration. There is no warmth. There is no redness. No wounds or signs of gouty tophi Palpation: No pain to palpation. Some persistent col (more content not included)... Normal [facility] Plastic Surgery Visit Report on 07-09-2024 Plastic Surgery Visit Report [facility] Plastic Reconstructive Surgery [address], [address] [place] [address] OFFICE VISIT Date of Service: 07/09/24 MR#: [id number] Acct: [id number] Name: CHELLE MOHAN Rep #: [id number] : 1970 Provider: Dr. Rylan Mosley MD Age/Sex: 53/M Location: [facility] Status: Signed Intake Vital Signs 07/05/24 18:41 07/09/24 08:43 Height 5 ft 11 in Weight: 325 lb 8 oz BMI 45.3 BP 158/100 H 146/94 H Blood Pressure Location Rt brachial Position Sitting Respiration 18 18 Pulse 63 71 Pulse Source Monitor Temp 98.3 F Temp Source Temporal Pulse Oximetry (%) 100 96 Oxygen Delivery Method room air Intake Visit Reasons: follow up Chief Complaint: L hand small finger pain Is patient in pain?: Yes Allergies Penicillins (PCN) Allergy (Severe, Verified 07/09/24 08:42) Anaphylaxis Medications ???Medication ???Instructions ???Recorded ???Confirmed ???Type clindamycin HCl 300 mg capsule 300 mg PO Q6H 7 days #27 CAPSULES 07/05/24 07/09/24 Rx (Cleocin HCl) naproxen 500 mg tablet 500 mg PO BID 7 days #14 tabs 07/3007/09/24 Rx PFSH Medical History Cellulitis of finger Social History Smoking Status: Never smoker HPI follow up Details: Chelle Mohan is a delightful 53-year-old male with past medical history of gout (episodes in his great toe metatarsal phalangeal joint most frequently) for the past several years 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 Patient reports that on 26 June 2024 (Friday morning) he woke up with left small finger pain in and around the DIP joint. Patient denies any fevers or chills since then. He attempted to take colchicine on Friday, 28 June 2024, x 2 doses and this did not help. Patient went to the emergency department last night because it was just not getting better. At the emergency department last night, no labs were drawn, and there was concern for an isolated gout flare. X-ray . was reviewed and was unremarkable. No concern for septic joint per discussion on the phone with the emergency department. Out of precaution, patient was placed on course of clindamycin. Today patient reporting persistent pain in the location. He reports that the pain has been persistently dull and steady on the left DIP joint, and is worsened by movements and improved with rest. The pain has not gotten worse. There is no redness around the area but there is some swelling. He has not tried elevating it yet. Patient does not remember any trauma (maybe a small scratch a couple weeks ago on the surface of the small finger, but was very superficial like a paper cut). No deep puncture wounds. Patient also notably has a history of restless leg syndrome, which is subsequently led to him being wall/the headboard of the bed during his sleep. He thinks that it is possible that he may have jammed his finger in his sleep as he woke up with this pain. He is not a smoker. Current encounter, for July 2024: Patient noticed slight improvement of the swelling but similar pain. Asking today if this could be related to the way he holds his cell phone because he holds the cell phone in his hand with a radial to ulnar force on the small finger DIP joint. Patient also reporting that he has been taking ibuprofen (was unable to get the Naprosyn filled as this did not go through to the pharmacy). Exam Details Left upper Extremity Inspection: Slight swelling of the left small finger but no induration and no fluid collections. There is no warmth. There is no redness. No wounds or signs of gouty tophi Palpation: There is no pain over the A1 federico and no pain with axial loading of the DIP joint of the small finger. There is no pain with flexor tendon excursion, or pain over the proximal flexor tendon sheath. There is no pain in the palm. Some persistent collateral ligament instability with stress (patient and examiner both feel a popping with radial and ulnar stresses to the DIP joint at neutral and 30 degrees flexion). This causes pain. There is no significant displacement of the distal phalanx with this maneuver, but ligaments feel strained. Motor: Able to bend and extend all MP, PIP, and DIP joints. Sensory: Intact to light touch on the radial and ulnar borders. Vascular: Finger tips are warm and well perfused with <2 second capillary refill. Coding Level of Care Code Off vis,est,level 2 Diagnoses Cellulitis of finger L03.019 Finger sprain S63.619A Assessment and Plan (No Qualifie (more content not included)... Normal [facility] Plastic Surgery Visit Report on 07-06-2024 Plastic Surgery Visit Report [facility] Plastic Reconstructive Surgery [address], [address] [place] [address] OFFICE VISIT Date of Service: 07/06/24 MR#: [id number] Acct: [id number] Name: CHELLE MOHAN Rep #: [id number] : 1970 Provider: Dr. Rylan Mosley MD Age/Sex: 53/M Location: [facility] Status: Signed Intake Vital Signs 3 07/05/24 18:41 Height 5 ft 11 in Intake Visit Reasons: L HAND SMALL FINGER Chief Complaint: L hand small finger pain Is patient in pain?: Yes Allergies Penicillins (PCN) Allergy (Severe, Verified 07/06/24 10:00) Anaphylaxis Medications 3 ???Medication ???Instructions ???Recorded ???Confirmed ???Type clindamycin HCl 300 mg capsule 300 mg PO Q6H 7 days #27 CAPSULES 07/05/24 07/06/24 Rx (Cleocin HCl) PFSH Medical History Cellulitis of finger Social History Smoking Status: Never smoker HPI L HAND SMALL FINGER Details: Chelle Mohan is a delightful 53-year-old male with past medical history of gout (episodes in his great toe metatarsal phalangeal joint most frequently) for the past several years 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 Patient reports that on 26 June 2024 (Friday morning) he woke up with left small finger pain in and around the DIP joint. Patient denies any fevers or chills since then. He attempted to take colchicine on Friday, 28 June 2024, x 2 doses and this did not help. Patient went to the emergency department last night because it was just not getting better. At the emergency department last night, no labs were drawn, and there was concern for an isolated gout flare. X-ray . was reviewed and was unremarkable. No concern for septic joint per discussion on the phone with the emergency department. Out of precaution, patient was placed on course of clindamycin. Today patient reporting persistent pain in the location. He reports that the pain has been persistently dull and steady on the left DIP joint, and is worsened by movements and improved with rest. The pain has not gotten worse. There is no redness around the area but there is some swelling. He has not tried elevating it yet. Patient does not remember any trauma (maybe a small scratch a couple weeks ago on the surface of the small finger, but was very superficial like a paper cut). No deep puncture wounds. Patient also notably has a history of restless leg syndrome, which is subsequently led to him being wall/the headboard of the bed during his sleep. He thinks that it is possible that he may have jammed his finger in his sleep as he woke up with this pain. He is not a smoker. Exam Details Left upper Extremity Inspection: Slight swelling of the left small finger but no induration and no fluid collections. There is no warmth. There is no redness. No wounds or signs of gouty tophi Palpation: There is no pain over the A1 federico and no pain with axial loading of the DIP joint of the small finger. There is no pain with flexor tendon excursion, or pain over the proximal flexor tendon sheath. There is no pain in the palm. There is however some collateral ligament instability with stress (patient and examiner both feel a popping with radial and ulnar stresses to the DIP joint at neutral and 30 degrees flexion). This causes pain. There is no significant displacement of the distal phalanx with this maneuver, but ligaments feel strained. Motor: Able to bend and extend all MP, PIP, and DIP joints. Sensory: Intact to light touch on the radial and ulnar borders. Vascular: Finger tips are warm and well perfused with <2 second capillary refill. Supplemental Info X-ray reviewed No lytic lesions. No fractures or dislocations Coding Level of Care Code Off vis,new,level 4 Diagnoses Cellulitis of finger L03.019 Finger sprain S63.619A Assessment and Plan (No Qualifiers) Assessment and Plan (1) Cellulitis of finger: Status: Acute Plan: Diagnosis of exclusion, and agree with continued clindamycin treatment (patient will finish course). Plan for elevation and rest (patient to elevate the digit above heart while sitting and while sleeping) (2) Finger sprain: Status: Acute Plan: Possible finger sprain given exam (see collateral ligament exam) and with history of hitting things in his sleep. He woke up with the pain which gives more credence to this possible diagnosis. He was placed in AlumaFoam splint for immobilization in a neutral position of the DIP joint. We will reevaluate on Friday, 09 July 2024. He was also placed on Naprosyn, (more content not included)... [facility] Visit ([facility] ) CHELLE MOHAN ([id number]) 1970 M Date Time Provider Department 07/05/24 6:00 PM JIM [facility]ÍGUEZ [facility] During your visit today, we recorded the following information about you: Temperature Pulse Respiration Blood pressure 97.6 degrees 90/minute 16/minute 130/82 Weight 147.7 kg Jim Rodríguez APRN.NOISE TESTER 07/05/2024 6:16 PM Signed [facility] Subjective Chelle Castaneda Marques is a 53 year old male. Patient presents with: Finger Pain: left pinky finger pain x 1 week 53 year old male with PMH HTN, RLS, and OA presents for finger complaints Acute onset one week ago Left little finger +swelling +pain Reduced and limited ROM The history is provided by the patient. No radio interference supervisor was used. PAST MEDICAL HISTORY Diagnosis Date Allergy-induced asthma 10/31/2014 Backache, unspecified 01/17/2006 CLUSTER HEADACHES 06/18/2005 DEPRESSIVE DISORDER NEC 01/17/2006 Embolism and thrombosis of unspecified site Esophageal reflux Generalized osteoarthrosis, unspecified site Hypertensive kidney disease, benign Insomnia, unspecified 06/07/2008 Left leg pain 03/30/2013 Lumbago Lumbar disc herniation 03/30/2013 Lumbar radicular pain 03/30/2013 Malabsorption syndrome 10/31/2014 Obesity, unspecified 04/18/2006 KEI (obstructive sleep apnea) Other and unspecified hyperlipidemia Other chest pain Peptic ulcer, unspecified site, unspecified as acute or chronic, without mention of hemorrhage or perforation Peptic ulcer, unspecified site, unspecified as acute or chronic, without mention of hemorrhage, perforation, or obstruction 12/31/2006 Restless leg syndrome 10/27/2010 S/P gastric bypass 03/19/2013 Vitamin D deficiency 08/10/2013 PAST SURGICAL HISTORY Procedure Laterality Date EGD 1979, 2007 HERNIA REPAIR W/MESH 12/07/15 incisional LAPS GSTR RSTCV PX W/BYP LAKIA-EN-Y LIMB <150 CM 2007 PAST SURGICAL HISTORY OF dental extraction ALLERGIES Penicillins MEDICATIONS ergocalciferol, vitamin D2, (VITAMIN D) 50,000 unit capsule One cap twice a week. gabapentin (NEURONTIN) 600 mg tablet Take 1 tablet by mouth daily at bedtime for 11 days. (Patient not taking: Reported on 07/05/2024) rOPINIRole (REQUIP) 1 mg tablet Take 1 tablet by mouth daily at bedtime. (Patient not taking: Reported on 07/05/2024) Hydrochlorothiazide 12.5 mg capsule Take 1 capsule by mouth once daily. (Patient not taking: Reported on 07/05/2024) losartan (COZAAR) 100 mg tablet Take 1 tablet by mouth once daily. FLUoxetine HCl (PROZAC) 40 mg capsule Take 1 capsule by mouth once daily. (Patient not taking: Reported on 07/05/2024) traMADol (ULTRAM) 50 mg tablet Take 1 tablet by mouth twice daily as needed. (Patient not taking: Reported on 07/05/2024) cyanocobalamin (VITAMIN B-12) 1,000 mcg tab Take 1 tablet by mouth once daily. (Patient not taking: Reported on 07/05/2024) FAMILY HISTORY Problem Relation Age of Onset Psychiatry Mother depression Coronary Artery Disease Maternal Grandmother late 50's Coronary Artery Disease Maternal Grandfather late 50's Coronary Artery Disease Maternal Aunt late 50's Diabetes Maternal Grandmother Hypertension Mother Social History Tobacco Use Smoking status: Never Smokeless tobacco: Never Substance Use Topics Alcohol use: Yes Comment: occasional Drug use: No Review of Systems Objective BP 130/82 Pulse 90 Temp 36.4 ?C (97.6 ?F) Resp 16 Wt (!) 147.7 kg (325 lb 9.9 oz) SpO2 98% BMI 46.72 kg/m? Physical Exam Vitals and nursing note reviewed. Constitutional: General: He is not in acute distress. Appearance: Normal appearance. He is not ill-appearing, toxic-appearing or diaphoretic. HENT: Head: Normocephalic and atraumatic. Right Ear: External ear normal. Left Ear: External ear normal. Nose: Nose normal. No congestion or rhinorrhea. Mouth/Throat: Mouth: Mucous membranes are moist. Pharynx: Oropharynx is clear. No oropharyngeal exudate or posterior oropharyngeal erythema. Eyes: General: Right eye: No discharge. Left eye: No discharge. Extraocular Movements: Extraocular movements intact. Conjunctiva/sclera: Conjunctivae normal. Pupils: Pupils are equal, round, and reactive to light. Cardiovascular: Rate and Rhythm: Normal rate and regular rhythm. Pulses: Normal pulses. Heart sounds: Normal heart sounds. No murmur heard. No friction rub. No gallop. Pulmonary: Effort: Pulmonary effort is normal. No respiratory distress. Breath sounds: Normal breath sounds. No stridor. No wheezing, rhonchi or rales. Chest: Chest wall: No tenderness. Abdominal: General: Abdomen is flat. There is no distension. Palpations: Abdomen is soft. There is no mass. Tenderness: There is no abdominal tenderness. There is no guarding or rebound. Hernia: No hernia is present. Musculoskeletal: General: Tenderness pr (more content not included)... Normal [facility] Emergency Department Summary on 07-05-2024 Emergency Department Summary [facility] Medical Records Department [address] [place] [address] Emergency Department Summary 07/05/24 MR#: [id number] Acct: [id number] Name: CHELLE MOHAN Rep #: [id number] : 1970 53 From: [place] [facility] PCP: Dr. Aneudy Rooney MD Status:DEP ER Location: ED HPI History of Present Illness Chief Complaint: Upper Extremity Injury Narrative Narrative: Patient resenting today with swelling to his left fifth finger he has had for over a week. He went to urgent care today and they recommended he come here for evaluation for possible infection. He denies any injury to his finger. He did have a small abrasion just below his nailbed several days prior to the finger beginning to swell and that did resolve. He is right-handed. He has had no associated fevers or chills. He reports that he is healthy otherwise with no chronic medical conditions. [facility] Medical History no medical history Home Medications ???Medication ???Instructions ???Recorded ???Last Taken ???Type clindamycin HCl 300 mg capsule 300 mg PO Q6H 7 days #27 CAPSULES 07/05/24 Unknown Rx (Cleocin HCl) Allergy/AdvReac Type Severity Reaction Status Date / Time Penicillins (PCN) Allergy Severe Anaphylaxis Verified 07/05/24 18:40 Family History no significant family his Surgical History no surgical history Social History Smoking Status: Never smoker ROS ROS ED Constitutional Constitutional ED: Denies chills or fever(s) Cardiovascular Cardiovascular: Denies chest pain Respiratory/Chest Respiratory/Chest: Denies dyspnea Musculoskeletal Musculoskeletal: Reports arthralgias Integumentary Denies abscess, Abrasions or rash Neurologic Neurologic: Denies weakness EXAM Physical Exam Const Vital Signs: 07/05/24 18:41 07/05/24 18:45 Temperature 98.3 F 98.3 F Temperature Source Temporal Oral Pulse Rate 63 63 Respiratory Rate 18 16 Blood Pressure 158/100 H 158/100 H Blood Pressure Mean 119 119 Pulse Ox 100 100 Oxygen Delivery Method Room Air Room Air Positive well nourished, well developed and no apparent distress General Appearance ED: well developed HEENT Reports normocephalic and head/scalp atraumatic Mouth ED: Yes moist mucous membranes normal Eyes PERRL and EOMs intact bilaterally Neck full ROM and supple Chest Wall inspection of chest normal Resp normal respiratory effort and clear to auscultation bilaterally Cardio regular rate and regular rhythm GI soft to palpation, non-tender, non-distended and no masses Back/Spine normal ROM and normal to inspection Extremity full ROM Extremity Narrative: Edema to the left fifth finger without any erythema, warmth, fluctuance, nor overlying wounds. Patient is able to flex and extend at the MCP and PIP joints decreased range of motion at the DIP joint due to swelling. Minimal pain to palpation to the left fifth middle phalanx. Left radial pulse 2+, good cap refill, sensation intact. Neuro oriented x3, CN's II-XII intact bilaterally, moves all extremities, no focal motor deficits and no sensory deficits noted Sensorium / Orientation: awake and alert Psych mental status grossly normal and thought process normal Skin no rashes or lesions noted and no wounds MDM MDM MDM Narrative Medical decision making narrative: Patient presenting today with swelling to the left pinky finger he has had for about 9 days. No known injury to the area. No open wounds or obvious signs of infection to the finger. He is otherwise neurovascularly intact. X-ray will be obtained. X-ray of the finger obtained to assess for foreign body/fracture and is negative. The attending did speak with Dr. Mosley who recommends antibiotics to cover for cellulitis and having him follow-up in the office tomorrow. He will be started on clindamycin with first dose here. Exam is not consistent with acute flexor tenosynovitis, return instructions were discussed with him and patient discharged home in stable condition. I have personally performed a face to face assessment of the patient and have reviewed the LILA Note. I performed a substantive portion of the visit including all aspects of the following. My santiago findings include: History is [patient presents with pain and swelling to his right small finger x 1 week. He denies injury. States that he had a small scratch to the dorsum of the distal phalanx just proximal to the nail but did not think much of it and that resolved. 7 hard time flexing the digit at the DIP joint. Denies any other injuries. 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 He does have history of gout but never had in the hands.] Exam is [ESTEBAN, SREEDHARMI. Cranial nerves II through XII grossly (more content not included)... Normal [facility] Finger(s) Min 2 Viewson 03- Finger(s) Min 2 Views [facility] Imaging Services [address] [place], [place] [id number] Finger(s) Min 2 Views MR#: [id number] Acct: [id number] Name: MARQUESCHELLE Tonya Rep #: [id number] : 1970 M 53 From: Destiny Montes nd, MD PCP: Dr. Aneudy Rooney MD Status: DEP ER Study: Finger(s) Min 2 Views Date of Exam: 07/05/24 Exam# [id number] Ordering Dr: Lazara Zhang PROCEDURE: FINGER(S) MIN 2 VIEWS 07/05/2024 REASON FOR EXAM: 53-year-old male, 5TH FINGER SWELLING x1 week TECHNIQUE: 3 view(s) of the left 5th finger COMPARISON: None. FINDINGS: Bones: No acute osseous fracture. No aggressive osseous lesions. Joints: Normal alignment. Joint spaces preserved. No arthropathic features. Soft tissues: No radiopaque foreign body. RAD/Finger(s) Min 2 Views IMPRESSION: NEGATIVE FINGER SERIES Reading Location: [facility] CC: Dr. Aneudy Rooney MD; DELMI Larose Flying Teacher: Signed [facility] XR FOOT LEFT 3+ VIEWSon XR FOOT LEFT 3+ VIEWS Interpreted By: Walt Jean, STUDY: XR FOOT LEFT 3+ VIEWS; 11/10/2023 11:01 am INDICATION: Signs/Symptoms:mid foot pain x 2-3 weeks, NKI, hx stress fracture and gout. COMPARISON: 02/05/2013 ACCESSION NUMBER(S): [id number] ORDERING CLINICIAN: INA SYED FINDINGS: Bony structures: Intact Joint spaces: Maintained Soft tissues: Unremarkable without significant edema or radiodense foreign body Other: None significant IMPRESSION: No acute findings. There has not been significant interval change from the prior exam. MACRO: None Signed by: Walt Jean 11/10/2023 12:26 PM Dictation workstation: [id number] [facility] Vital Signs Date Time Vital Sign Value Performing Clinician Facility 11-15-2024 07:55-0400 Body height 180.3 cm Aneudy Rooney MD Work Phone: [facility] 11-15-2024 07:55-0400 Body mass index (BMI) [Ratio] 44.35 kg/m2 Aneudy Rooney MD Work Phone: [facility] 11-15-2024 07:55-0400 Body weight 144.24 kg Aneudy Rooney MD Work Phone: [facility] 11-15-2024 07:55-0400 Diastolic blood pressure 80 mm[Hg] Aneudy Rooney MD Work Phone: [facility] 11-15-2024 07:55-0400 Heart rate 64 /min Aneudy Rooney MD Work Phone: 0(770)[phone] [place] [address] 11-15-2024 07:55-0400 Systolic blood pressure 138 mm[Hg] Aneudy Rooney MD Work Phone: 9(904)[phone] [place] [address] 10-18-2024 08:02-0400 Body height 180.3 cm Aneudy Rooney MD Work Phone: 9(360)[phone] [place] [address] 10-18-2024 08:02-0400 Body mass index (BMI) [Ratio] 44.77 kg/m2 Aneudy Rooney MD Work Phone: 2(482)878-042648 [place] [address] 10-18-2024 08:02-0400 Body weight 145.6 kg Aneudy Rooney MD Work Phone: 5(582)[phone] [place] [address] 10-18-2024 08:02-0400 Diastolic blood pressure 98 mm[Hg] Aneudy Rooney MD Work Phone: [facility] 10-18-2024 08:02-0400 Heart rate 64 /min Aneudy Rooney MD Work Phone: [facility] 10-18-2024 08:02-0400 Systolic blood pressure 144 mm[Hg] Aneudy Rooney MD Work Phone: [facility] 07-05-2024 19:22-0400 Body temperature 98.3 [degF] Dr. Aneudy Rooney MD Work Phone: [facility] 07-05-2024 19:22-0400 Diastolic blood pressure 100 mm[Hg] Dr. Aneudy Rooney MD Work Phone: [facility] 07-05-2024 19:22-0400 Heart rate 63 /min Dr. Aneudy Rooney MD Work Phone: [facility] 07-05-2024 19:22-0400 Respiratory rate 16 /min Dr. Aneudy Rooney MD Work Phone: [facility] 07-05-2024 19:22-0400 SaO2% (BldA) [Mass fraction] 100 % Dr. Aneudy Rooney MD Work Phone: [facility] 07-05-2024 19:22-0400 Systolic blood pressure 158 mm[Hg] Dr. Aneudy Rooney MD Work Phone: [facility] 07-05-2024 18:41-0400 Body height 180.[address] Aneudy Rooney MD Work Phone: [facility] 07-05-2024 18:41-0400 Body mass index (BMI) [Ratio] 45.3 kg/m2 Dr. Aneudy Rooney MD Work Phone: [facility] 07-05-2024 18:41-0400 Body weight 147.[address] Aneudy Rooney MD Work Phone: [facility] 07-05-2024 18:05-0400 Body mass index (BMI) [Ratio] 46.72 kg/m2 Jim Rodríguez AMBULATORY TECHNOLOGIST.NOISE TESTER Work Phone: [facility] 07-05-2024 18:05-0400 Body temperature 97.59 [degF] Jim Rodríguez AMBULATORY TECHNOLOGIST.NOISE TESTER Work Phone: [facility] 07-05-2024 18:05-0400 Body weight 147.7 kg Jim Rodríguez AMBULATORY TECHNOLOGIST.NOISE TESTER Work Phone: [facility] 07-05-2024 18:05-0400 Diastolic blood pressure 82 mm[Hg] Jim Rodríguez AMBULATORY TECHNOLOGIST.NOISE TESTER Work Phone: [facility] 07-05-2024 18:05-0400 Heart rate 90 /min Jim Rodríguez AMBULATORY TECHNOLOGIST.NOISE TESTER Work Phone: [facility] 07-05-2024 18:05-0400 Respiratory rate 16 /min Jimsam Rodríguez AMBULATORY TECHNOLOGIST.NOISE TESTER Work Phone: [facility] 07-05-2024 18:05-0400 SaO2% (BldA) [Mass fraction] 98 % Jim Rodríguez AMBULATORY TECHNOLOGIST.NOISE TESTER Work Phone: [facility] 07-05-2024 18:05-0400 Systolic blood pressure 130 mm[Hg] Jim Rodríguez AMBULATORY TECHNOLOGIST.NOISE TESTER Work Phone: [facility] 04-09-2024 08:13-0500 Body height 180.3 cm Aneudy Rooney MD Work Phone: 3(807)203-279348 [place] [address] 04-09-2024 08:13-0500 Body mass index (BMI) [Ratio] 45.47 kg/m2 Aneudy Rooney MD Work Phone: 8(283)640-930811 [address] 04-09-2024 08:13-0500 Body weight 147.87 kg Aneudy Rooney MD Work Phone: 4(569)069-750511 [address] 04-09-2024 08:13-0500 Diastolic blood pressure 82 mm[Hg] Aneudy Rooney MD Work Phone: 5(946)341-679948 [place] [address] 04-09-2024 08:13-0500 Heart rate 72 /min Aneudy Rooney MD Work Phone: 5(422)573-397048 [place] [address] 04-09-2024 08:13-0500 Systolic blood pressure 134 mm[Hg] Aneudy Rooney MD Work Phone: 6(768)253-663048 [place] [address] 02-26-2024 08:28-0500 Body height 180.3 cm Aneudy Rooney MD Work Phone: 2(130)096-852148 [place] [address] 02-26-2024 08:28-0500 Body mass index (BMI) [Ratio] 44.63 kg/m2 Aneudy Rooney MD Work Phone: 5(959)415-461848 [place] [address] 02-26-2024 08:28-0500 Body weight 145.15 kg Aneudy Rooney MD Work Phone: 8(450)262-253911 [address] 02-26-2024 08:28-0500 Diastolic blood pressure 86 mm[Hg] Aneudy Rooney MD Work Phone: [facility] 02-26-2024 08:28-0500 Heart rate 64 /min Aneudy Rooney MD Work Phone: [facility] 02-26-2024 08:28-0500 Systolic blood pressure 142 mm[Hg] Aneudy Rooney MD Work Phone: [facility] 02-02-2024 09:00-0400 Diastolic blood pressure 86 mm[Hg] Aneudy Rooney MD Work Phone: [facility] Comment on above: left arm seated large cuff 02-02-2024 09:00-0400 Systolic blood pressure 135 mm[Hg] Aneudy Rooney MD Work Phone: [facility] Comment on above: left arm seated large cuff 02-02-2024 08:37-0400 Body height 180.3 cm Aneudy Rooney MD Work Phone: [facility] 02-02-2024 08:37-0400 Body mass index (BMI) [Ratio] 43.93 kg/m2 Aneudy Rooney MD Work Phone: [facility] 02-02-2024 08:37-0400 Body weight 142.88 kg Aneudy Rooney MD Work Phone: [facility] 02-02-2024 08:37-0400 Heart rate 64 /min Aneudy Rooney MD Work Phone: [facility] 01-14-2024 08:03-0400 Body height 180.3 cm Aneudy Rooney MD Work Phone: [facility] 01-14-2024 08:03-0400 Body mass index (BMI) [Ratio] 43.52 kg/m2 Aneudy Rooney MD Work Phone: [facility] 01-14-2024 08:03-0400 Body weight 141.52 kg Aneudy Rooney MD Work Phone: [facility] 01-14-2024 08:03-0400 Diastolic blood pressure 88 mm[Hg] Aneudy Rooney MD Work Phone: [facility] 01-14-2024 08:03-0400 Heart rate 64 /min Aneudy Rooney MD Work Phone: [facility] 01-14-2024 08:03-0400 Systolic blood pressure 130 mm[Hg] Aneudy Rooney MD Work Phone: [facility] 07-15-2023 08:14-0400 Body height 180.3 cm Aneudy Rooney MD Work Phone: [facility] 07-15-2023 08:14-0400 Body mass index (BMI) [Ratio] 43.3 kg/m2 Aneudy Rooney MD Work Phone: [facility] 07-15-2023 08:140400 Body weight 140.81 kg Aneudy Rooney MD Work Phone: [facility] 07-15-2023 08:14-0400 Diastolic blood pressure 80 mm[Hg] Aneudy Rooney MD Work Phone: [facility] 07-15-2023 08:14-0400 Heart rate 79 /min Aneudy Rooney MD Work Phone: [facility] 07-15-2023 08:14-0400 Systolic blood pressure 118 mm[Hg] Aneudy Rooney MD Work Phone: [facility] 06-24-2023 [id number] Body height 180.3 cm Aneudy Rooney MD Work Phone: [facility] 06-24-2023 08:11-0400 Body mass index (BMI) [Ratio] 42.96 kg/m2 Aneudy Rooney MD Work Phone: [facility] 06-24-2023 08:11-0400 Body weight 139.71 kg Aneudy Rooney MD Work Phone: [facility] 06-24-2023 08:11-0400 Diastolic blood pressure 86 mm[Hg] Aneudy Rooney MD Work Phone: [facility] 06-24-2023 08:11-0400 Heart rate 70 /min Aneudy Rooney MD Work Phone: [facility] 06-24-2023 08:11-0400 SaO2% (BldA) [Mass fraction] 97 % Aneudy Rooney MD Work Phone: [facility] 06-24-2023 08:11-0400 Systolic blood pressure 134 mm[Hg] Aneudy Rooney MD Work Phone: [facility] Encounters Encounter Date Encounter Type Care Provider Facility Start: 11-15-2024 End: 11-15-2024 Office outpatient visit 25 minutes Aneudy Rooney MD Work Phone: [facility] Comment on above: Restless leg syndrom e (Primary Dx); Primary hypertension Start: 11-15-2024 End: 11-15-2024 ambulatory ANEUDY Foster [facility] Start: 10-18-2024 End: 10-18-2024 Office outpatient visit 25 minutes Aneudy Rooney MD Work Phone: [facility] Comment on above: Primary hypertension (Primary Dx); Other specified attention deficit hyperactivity disorder (ADHD); Vitamin D deficiency; Idiopathic chronic gout of multiple sites without tophus; History of gastric bypass Start: 10-18-2024 End: 10-18-2024 ambulatory ANEUDY ROONEY [facility] Start: 10-14-2024 End: 10-14-2024 ambulatory ANEUDY ROONEY [facility] Start: 07-16-2024 End: 07-16-2024 ambulatory Aneudy Rooney Facility:[facility] Start: 07-09-2024 End: 07-09-2024 ambulatory Aneudy Rooney Facility:[facility] Start: 07-06-2024 End: 07-06-2024 ambulatory Aneudy Rooney Facility:[facility] Start: 07-05-2024 End: 07-05-2024 Emergency department patient visit Dr. Aneudy Rooney MD Work Phone: -Emergency Department Work Phone: Start: 07-05-2024 End: 07-05-2024 ambulatory ANEUDY ROONEY Facility:[facility] Start: 07-05-2024 End: 07-05-2024 Patient encounter procedure Jim Rodríguez AMBULATORY TECHNOLOGIST.NOISE TESTER Work Phone: [facility] Comment on above: Swelling of finger ( Primary Dx) Start: 04-09-2024 End: 04-09-2024 Office outpatient visit 25 minutes Aneudy Rooney MD Work Phone: [facility] Comment on above: Anxiety (Primary Dx) ; Restless leg syndrome; Primary hypertension; History of gastric bypass Start: 04-09-2024 End: 04-09-2024 ambulatory [facility] Start: 02-26-2024 End: 02-26-2024 Office outpatient visit 25 minutes Aneudy Rooney MD Work Phone: [facility] Comment on above: 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) (Primary Dx); Anxiety; Bilateral impacted cerumen; Restless leg syndrome; Primary hypertension Start: 02-26-2024 End: 02-26-2024 ambulatory [facility] Start: 02-02-2024 End: 02-02-2024 Office outpatient visit 15 minutes Aneudy Rooney MD Work Phone: [facility] Comment on above: 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) (Primary Dx); Anxiety Start: 02-02-2024 End: 02-02-2024 ambulatory [facility] Start: 01-14-2024 End: 01-14-2024 Office outpatient visit 25 minutes Aneudy Rooney MD Work Phone: [facility] Comment on above: Anxiety (Primary Dx) ; 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); History of gastric bypass; Primary hypertension; Idiopathic chronic gout of multiple sites without tophus; Restless leg syndrome Start: 01-14-2024 End: 01-14-2024 ambulatory [facility] Start: 11-10-2023 End: 11-10-2023 ambulatory [facility] Start: 07-15-2023 End: 07-15-2023 Office outpatient visit 25 minutes Aneudy Rooney MD Work Phone: [facility] Comment on above: Restless leg syndrom e (Primary Dx); Vitamin D deficiency; Primary hypertension; Acute idiopathic gout of left foot Start: 06-24-2023 End: 06-24-2023 Office outpatient new 45 minutes Aneudy Rooney MD Work Phone: [facility] Comment on above: Primary hypertension (Primary Dx); Restless leg syndrome; History of gastric bypass; Acute idiopathic gout of left foot; BMI 40.0-44.9, adult (CMS/HCC); Vitamin D deficiency Start: 06-03-2023 Telephone encounter Augustine Chandler MD Work Phone: [facility] Comment on above: Patient Question Procedures Date Procedure Procedure Detail Performing Clinician Start: 01-14-2024 Follow-up visit Follow-up ANEUDY ROONEY Start: 01-08-2024 Lipid 1996 panel - S pranay or Plasma Aneudy Rooney MD Work Phone: Start: 11-10-2014 Lipid 1996 panel - S pranay or Plasma Augustine Chandler MD Work Phone: Plan of Treatment Date Care Activity Detail Author Start: 01-07-2029 Lipid panel Lipid Panel [facility] Start: 10-14-2025 Diabetes mellitus screening Diabetes Screening [facility] Start: 09-18-2025 Screening for malign ant neoplasm of colon [facility] Start: 05-16-2025 End: 05-16-2025 Patient encounter procedure 05/16/2025 8:00 AM EST Office Visit [facility] [address] [phone] Aneudy Rooney MD [address] [address] [facility] Start: 04-17-2025 End: 07-16-2025 CBC W Auto Differential panel - Blood CBC and Auto Differential Lab Routine Restless leg syndrome Expected: 04/17/2025 (Approximate), Expires: 07/16/2025 [facility] Work Phone: Comment on above: Expected: 04/17/2025 (Approximate), Expires: 07/16/2025 Start: 04-17-2025 End: 07-16-2025 Comprehensive metabolic 2000 panel - Serum or Plasma Comprehensive Metabolic Panel Lab Routine Restless leg syndrome Expected: 04/17/2025 (Approximate), Expires: 07/16/2025 [facility] Service Area Work Phone: Comment on above: Expected: 04/17/2025 (Approximate), Expires: 07/16/2025 Start: 04-17-2025 End: 07-16-2025 Hemoglobin A1c/Hemoglobin.total in Blood Hemoglobin A1C Lab Routine Restless leg syndrome Expected: 04/17/2025 (Approximate), Expires: 07/16/2025 [facility] Work Phone: Comment on above: Expected: 04/17/2025 (Approximate), Expires: 07/16/2025 Start: 12-06-2024 Influenza vaccination Influenza Vacc ine (#1) [facility] Start: 11-15-2024 End: 11-15-2024 Patient encounter procedure 11/15/2024 8:00 AM EDT Office Visit [place] [address] [phone] Aneudy Rooney MD [address] [address] [facility] Start: 10-11-2024 End: 10-11-2024 Patient encounter procedure 10/11/2024 8:00 AM EDT Office Visit [place] [address] [phone] Aneudy Rooney MD [address] [address] [facility] Start: 09-07-2024 End: 04-09-2025 25-hydroxyvitamin D3 [Mass/volume] in Serum or Plasma Vitamin D 25-Hydroxy,Total (for eval of Vitamin D levels) Lab Routine Primary hypertension History of gastric bypass Expected: 09/07/2024 (Approximate), Expires: 04/09/2025 [facility] Work Phone: Comment on above: Expected: 09/07/2024 (Approximate), Expires: 04/09/2025 Start: 09-07-2024 End: 04-09-2025 CBC W Auto Differential panel - Blood CBC and Auto Differential Lab Routine Primary hypertension History of gastric bypass Expected: 09/07/2024 (Approximate), Expires: 04/09/2025 [facility] Service Area Work Phone: Comment on above: Expected: 09/07/2024 (Approximate), Expires: 04/09/2025 Start: 09-07-2024 End: 04-09-2025 Cobalamin (Vitamin B12) [Mass/volume] in Serum or Plasma Vitamin B12 Lab Routine Primary hypertension History of gastric bypass Expected: 09/07/2024 (Approximate), Expires: 04/09/2025 [facility] Work Phone: Comment on above: Expected: 09/07/2024 (Approximate), Expires: 04/09/2025 Start: 09-07-2024 End: 04-09-2025 Comprehensive metabolic 2000 panel - Serum or Plasma Comprehensive Metabolic Panel Lab Routine Primary hypertension History of gastric bypass Expected: 09/07/2024 (Approximate), Expires: 04/09/2025 [facility] Work Phone: Comment on above: Expected: 09/07/2024 (Approximate), Expires: 04/09/2025 Start: 09-07-2024 End: 04-09-2025 Iron and Iron binding capacity panel - Serum or Plasma Iron and TIBC Lab Routine Primary hypertension History of gastric bypass Expected: 09/07/2024 (Approximate), Expires: 04/09/2025 [facility] Work Phone: Comment on above: Expected: 09/07/2024 (Approximate), Expires: 04/09/2025 Start: 09-07-2024 End: 04-09-2025 Microalbumin/Creatinine [Mass Ratio] in Urine Albumin-Creatinine Ratio, Urine Random Lab Routine Primary hypertension History of gastric bypass Expected: 09/07/2024 (Approximate), Expires: 04/09/2025 [facility] Work Phone: Comment on above: Expected: 09/07/2024 (Approximate), Expires: 04/09/2025 Start: 09-07-2024 End: 04-09-2025 Urinalysis microscopic panel - Urine Qualitative by Automated Microscopic Only, Urine Lab Routine Primary hypertension History of gastric bypass Expected: 09/07/2024 (Approximate), Expires: 04/09/2025 [facility] Work Phone: Comment on above: Expected: 09/07/2024 (Approximate), Expires: 04/09/2025 Start: 07-05-2024 [facility] Start: 07-05-2024 Plain X-ray of finger Finger(s) Min 2 Views [facility] Start: 07-05-2024 XR Finger GE 2 Views [facility] Start: 04-09-2024 End: 04-09-2024 Patient encounter procedure 04/09/2024 8:20 AM EST Office Visit [place] [address] [phone] Aneudy Rooney MD [address] [address] [facility] Start: 02-26-2024 End: 02-26-2024 Patient encounter procedure 02/26/2024 8:40 AM EST Office Visit [place] [address] [phone] Aneudy Rooney MD [address] [address] [facility] Start: 02-02-2024 End: 02-02-2024 Patient encounter procedure 02/02/2024 8:40 AM EDT Office Visit [place] [address] [phone] Aneudy Rooney MD [address] [address] [facility] Start: 01-14-2024 End: 10-09-2024 Patient encounter procedure 01/14/2024 8:00 AM EDT Office Visit [facility] [address] [place] [phone] A[facility]udy [facility]oney MD [address] [facility] [place] [address] [facility] Start: 01-09-2024 End: 07-14-2024 Comprehensive metabolic 2000 panel - Serum or Plasma Comprehensive Metabolic Panel Lab Routine Restless leg syndrome Vitamin D deficiency Expected: 01/09/2024 (Approximate), Expires: 07/14/2024 [facility] Service Area Work Phone: Comment on above: Expected: 01/09/2024 (Approximate), Expires: 07/14/2024 Start: 01-09-2024 End: 07-14-2024 Hemoglobin A1c/Hemoglobin.total in Blood Hemoglobin A1C Lab Routine Restless leg syndrome Vitamin D deficiency Expected: 01/09/2024 (Approximate), Expires: 07/14/2024 [facility] Work Phone: Comment on above: Expected: 01/09/2024 (Approximate), Expires: 07/14/2024 Start: 01-09-2024 End: 07-14-2024 TSH with reflex to Free T4 if abnormal TSH with reflex to Free T4 if abnormal Lab Routine Restless leg syndrome Vitamin D deficiency Expected: 01/09/2024 (Approximate), Expires: 07/14/2024 [facility] [facility] Work Phone: Comment on above: Expected: 01/09/2024 (Approximate), Expires: 07/14/2024 Start: 01-09-2024 End: 07-14-2024 Urate [Mass/volume] in Serum or Plasma Uric acid Lab Routine Restless leg syndrome Vitamin D deficiency Expected: 01/09/2024 (Approximate), Expires: 07/14/2024 [facility] Work Phone: Comment on above: Expected: 01/09/2024 (Approximate), Expires: 07/14/2024 Start: 12-07-2023 COVID-19 Vaccine ( season) COVID-19 Vaccine () [facility] Start: 12-07-2023 COVID-19 Vaccine () COVID-19 Vaccine () [facility] Start: 12-07-2023 Influenza vaccination [facility] Start: 07-15-2023 End: 07-15-2023 Patient encounter procedure 07/15/2023 8:20 AM EDT Office Visit [facility] [address] [place] [address] Aneudy Rooney MD [address] [facility] [place] [address] [facility] Start: 06-24-2023 End: 06-23-2024 25-hydroxyvitamin D3 [Mass/volume] in Serum or Plasma Vitamin D 25-Hydroxy,Total (for eval of Vitamin D levels) Lab Routine Vitamin D deficiency Expected: 06/24/2023 (Approximate), Expires: 06/23/2024 [facility] Work Phone: Comment on above: Expected: 06/24/2023 (Approximate), Expires: 06/23/2024 Start: 06-24-2023 End: 06-23-2024 CBC W Auto Differential panel - Blood CBC and Auto Differential Lab Routine Primary hypertension Expected: 06/24/2023 (Approximate), Expires: 06/23/2024 [facility] Service Area Work Phone: Comment on above: Expected: 06/24/2023 (Approximate), Expires: 06/23/2024 Start: 06-24-2023 End: 06-23-2024 Cobalamin (Vitamin B12) [Mass/volume] in Serum or Plasma Vitamin B12 Lab Routine History of gastric bypass Expected: 06/24/2023 (Approximate), Expires: 06/23/2024 [facility] Work Phone: Comment on above: Expected: 06/24/2023 (Approximate), Expires: 06/23/2024 Start: 06-24-2023 End: 06-23-2024 Comprehensive metabolic 2000 panel - Serum or Plasma Comprehensive Metabolic Panel Lab Routine Primary hypertension Expected: 06/24/2023 (Approximate), Expires: 06/23/2024 [facility] Work Phone: Comment on above: Expected: 06/24/2023 (Approximate), Expires: 06/23/2024 Start: 06-24-2023 End: 06-23-2024 Hemoglobin A1c/Hemoglobin.total in Blood Hemoglobin A1C Lab Routine BMI 40.0-44.9, adult ([facility]) Expected: 06/24/2023 (Approximate), Expires: 06/23/2024 [facility] Work Phone: Comment on above: Expected: 06/24/2023 (Approximate), Expires: 06/23/2024 Start: 06-24-2023 End: 06-23-2024 Lipid 1996 panel - Serum or Plasma Lipid Panel Lab Routine Primary hypertension Expected: 06/24/2023 (Approximate), Expires: 06/23/2024 [facility] Work Phone: Comment on above: Expected: 06/24/2023 (Approximate), Expires: 06/23/2024 Start: 06-24-2023 End: 06-23-2024 Microalbumin/Creatinine [Mass Ratio] in Urine Albumin , Urine Random Lab Routine Primary hypertension Expected: 06/24/2023 (Approximate), Expires: 06/23/2024 [facility] Work Phone: Comment on above: Expected: 06/24/2023 (Approximate), Expires: 06/23/2024 Start: 06-24-2023 End: 06-23-2024 TSH with reflex to Free T4 if abnormal TSH with reflex to Free T4 if abnormal Lab Routine BMI 40.0-44.9, adult ([facility]) Expected: 06/24/2023 (Approximate), Expires: 06/23/2024 [facility] Work Phone: Comment on above: Expected: 06/24/2023 (Approximate), Expires: 06/23/2024 Start: 06-24-2023 End: 06-23-2024 Urate [Mass/volume] in Serum or Plasma Uric acid Lab Routine Acute idiopathic gout of left foot Expected: 06/24/2023 (Approximate), Expires: 06/23/2024 [facility] Work Phone: Comment on above: Expected: 06/24/2023 (Approximate), Expires: 06/23/2024 Start: 06-24-2023 End: 06-23-2024 Urinalysis microscopic panel - Urine Qualitative by Automated Microscopic Only, Urine Lab Routine Primary hypertension Expected: 06/24/2023 (Approximate), Expires: 06/23/2024 [facility] Work Phone: Comment on above: Expected: 06/24/2023 (Approximate), Expires: 06/23/2024 Start: 04-07-2023 Depression Assessment Depression Ass essment [facility] Start: 03-13-2023 Diabetes Screening Diabetes Screenin g [facility] Start: 12-06-2022 Influenza vaccination Influenza Vacc ine (#1) [facility] Start: 06-16-2022 Yearly Adult Physical Yearly Adult P hysical [facility] Start: 2020 Pneumococcal vaccination Pneum ococcal Vaccine (1 of 1 - PCV) [facility] Start: 2020 Pneumococcal Vaccine : 50+ (1 of 1 - PCV) Pneumococcal Vaccine: 50+ (1 of 1 - PCV) [facility] Start: 2020 Prostate specific antigen measurement PSA Prostate Cancer Screening [facility] Start: 2020 Shingrix Vaccine (1 of 2) Shingrix Vaccine (1 of 2) [facility] Start: 2020 Zoster Vaccines (1 of 2) Zoste r Vaccines (1 of 2) [facility] Start: 11-11-2019 Lipid panel Lipid Screening [facility] Start: 07-05-2019 Diabetes Screening Diabetes Screenin g [facility] Start: 01-18-2016 DTaP/Tdap/Td Vaccine s (2 - Td or Tdap) DTaP/Tdap/Td Vaccines (2 - Td or Tdap) [facility] Start: 01-18-2016 Urine microalbumin profile DTaP,Tdap,Td Vaccine (2 - Td or Tdap) [facility] Start: 11-08-2015 Screening for malign ant neoplasm of colon [facility] Start: 1989 Hepatitis B Vaccine (1 of 3 - 19+ 3-dose series) Hepatitis B Vaccine (1 of 3 - 19+ 3-dose series) [facility] Start: 1989 Hepatitis B Vaccines (1 of 3 - 19+ 3-dose series) Hepatitis B Vaccines (1 of 3 - 19+ 3-dose series) [facility] Start: 1988 Annual PCP Team [employer] jennifer Disease Visit Annual PCP Team Chronic Disease Visit [facility] Start: 1988 Anxiety Screening Anxiety Screening [facility] Start: 1988 BP Controlled (<130/80) BP Controlle d (<130/80) [facility] Start: 1988 Diabetes mellitus screening Diabetes Screening [facility] Start: 1988 Hepatitis C screening Hepatitis C Sc reening [facility] Start: 1988 HIV screening HIV Screening [facility] Start: 1988 Spirometry Spirometry [facility] Start: 1976 Pneumococcal Vaccine : Pediatrics (0 to 5 Years) and At-Risk Patients (6 to 64 Years) (1 of 2 - PCV) Pneumococcal Vaccine: Pediatrics (0 to 5 Years) and At-Risk Patients (6 to 64 Years) (1 of 2 - PCV) [facility] Start: 11-08-1971 MMR Vaccines (1 of 1 - Standard series) MMR Vaccines (1 of 1 - Standard series) [facility] Start: 05-10-1971 Covid-19 Vaccine (#1) Covid-19 Vacci ne (#1) [facility] Start: 1970 Hepatitis B Vaccine (1 of 3 - 3-dose series) Hepatitis B Vaccine (1 of 3 - 3-dose series) [facility] Start: 1970 Hepatitis B Vaccines (1 of 3 - 3-dose series) Hepatitis B Vaccines (1 of 3 - 3-dose series) [facility] Start: 1970 HIV screening [facility] Screening [facility] Start: 1970 Lipid panel Lipid Panel [facility] Start: 1970 Screening for malign ant neoplasm of colon [facility] Start: 1970 Yearly Adult Physical Yearly Adult P hysical [facility] Cholesterol [Mass/volume] in Serum or Plasma Cholesterol Lab Routine 01/09/2024 [facility] Work Phone: Cholesterol in HDL [Mass/volume] in Serum or Plasma Cholesterol, HDL Lab Routine 01/09/2024 [facility] Work Phone: Cholesterol in LDL [Mass/volume] in Serum or Plasma Cholesterol, LDL Direct Lab Routine 01/09/2024 [facility] Work Phone: Lipid Panel Non-Fasting Lipid Pa lila Non-Fasting Lab Routine 01/09/2024 [facility] Service Area Work Phone: Patient Education ED Cellulitis [facility] Work Phone: Patient referral [facility] Work Phone: Immunizations Immunization Date Immunization Notes Care Provider Fa katerinety 06-07-2016 influenza, injectabl e, quadrivalent, contains preservative Augustine Chandler MD Work Phone: [facility] 06-07-2016 influenza virus vacc ine, unspecified formulation Augustine Chandler MD Work Phone: [facility] 03-05-2010 influenza virus vacc ine, unspecified formulation Augustine Chandler MD Work Phone: [facility] 01-17-2006 tetanus toxoid, redu neeru diphtheria toxoid, and acellular pertussis vaccine, adsorbed Augustine Chandler MD Work Phone: [facility] Payers Date Payer Category Payer Self-pay 2023 Managed Care (Private) [id number] 2023 Miscellaneous or Other HOSPITAL/ MEDICAL GENERIC [id number] 2023 Unknown [id number] 2017 Unknown [id number] 1970 Unknown [id number] 3 1970 Unknown [id number]. 1242 1970 Unknown [id number]. 1243 1970 Unknown [id number]. 1243 1970 Unknown [id number]. 1243 1970 Unknown [id number]. 1243 1970 Unknown [id number]. 1244 1970 Unknown [id number]. 1243 1970 Unknown [id number]. 1244 Unknown [facility] [id number] Unknown [id number] 462 Unknown [id number] 462 Unknown [id number] Unknown [id number] Social History Date Type Detail Facility Start: 06-24-2023 End: 07-05-2024 Tobacco smoking status NHIS Never smoked tobacco [facility] Start: 11-21-2021 Alcohol intake Current drinke r of alcohol (finding) [facility] Start: 10-04-2017 End: 10-18-2024 History of Social function [facility] Start: 10-04-2017 End: 10-18-2024 Tobacco use panel [facility] Start: 05-04-2015 [facility] Start: 1970 Sex Assigned At Not on file C [facility] Start: 06-24-2023 Tobacco use and exposure Smokeless tobacco non-user [facility] Work Phone: Start: 06-24-2023 End: 11-15-2024 Alcohol intake Ex-drinker (finding) [facility] Work Phone: Start: 06-14-2023 End: 04-09-2024 Exposure to SARS-CoV-2 (event) Not sure [facility] Start: 07-05-2024 Sex Male (finding) [facility] Start: 1970 Sex Assigned At Male W [facility] Start: 03-02-2022 Sex Male [facility] Medical Equipment Procedure Code Equipment Code Equipment Origin al Text Equipment Identifier Dates Patch Ventralex St Sepra Sorbaflex 3.2in Large [place] [employer] - [id number] Start: 12-07-2015 Functional Status Date Assessment Result Facility 10-31-2014 Are you deaf, or do you have serious difficulty hearing No 10/31/2014 8:02 AM Mi Saldaña LPN No [facility] 10-31-2014 Are you blind, or do you have serious difficulty seeing, even when wearing glasses No 10/31/2014 8:02 AM Mi Saldaña LPN No [facility] 10-31-2014 Do you have serious difficulty walking or climbing stairs No 10/31/2014 8:02 AM DEVANT Mi Urias LPN No [facility] 10-31-2014 Do you have difficul ty dressing or bathing No 10/31/2014 8:02 AM DEVANT Mi Urias LPN No [facility] 10-31-2014 Because of a physica l, mental, or emotional condition, do you have difficulty doing errands alone such as visiting a physician's office or shopping No 10/31/2014 8:02 AM DEVANT Mi Urias LPN No [facility] Mental Status Date Assessment Result Facility 10-31-2014 Because of a physica l, mental, or emotional condition, do you have serious difficulty concentrating, remembering, or making decisions No 10/31/2014 8:02 AM EDT Mi Urias LPN No [facility] Clinical Notes 06-03-2023 to 11-15-2024 Yudith Rincon LPN - 11/15/2024 8:00 AM Joel Rooney MD - 11/15/2024 8:00 AM Junior Rincon LPN - 10/18/2024 8:20 AM Joel Rooney MD - 10/18/2024 8:20 AM EDTPatient Instructions Note Date & Type Note Facility 11-15-2024 History of Present illness Narrative Follow up Patient presents for periodic surveillance of chronic medical problems. Subjective Chelle Edward is a 54 y.o. male who presents for Follow-up. HPI Followup starting guanfacine for htn and Add. Bp at goal, feels better overall. States noticed a difference on the medication. We discussed not stopping it abruptly and the risks of rebound hypertension, etc. He is interested in going back on gabapentin for restless leg. He had mentioned he drinks average of gallon of sweet tea per day, discussed the risk, progression to diabetes, and that he will likely sleep better if he is able to wean off of this. Review of Systems. Allergies[1] Medications Ordered Prior to Encounter[2] Problem List[3] Objective Visit Vitals BP 138/80 (BP Location: Left arm, Patient Position: Sitting) Pulse 64 Physical Exam Vitals and nursing note reviewed. Constitutional: General: He is not in acute distress. Appearance: Normal appearance. He is not toxic-appearing. HENT: Head: Normocephalic and atraumatic. Cardiovascular: Rate and Rhythm: Normal rate and regular rhythm. Heart sounds: No murmur heard. Pulmonary: Effort: Pulmonary effort is normal. Breath sounds: Normal breath sounds. Musculoskeletal: Cervical back: Neck supple. No rigidity. Comments: Skin: General: Skin is warm and dry. Neurological: General: No focal deficit present. Mental Status: He is alert and oriented to person, place, and time. Psychiatric: Mood and Affect: Mood normal. Behavior: Behavior normal. Assessment/Plan Problem List Items Addressed This Visit HTN (hypertension) Restless leg syndrome - Primary Relevant Medications gabapentin (Neurontin) 300 mg capsule Other Relevant Orders Comprehensive Metabolic Panel Hemoglobin A1C CBC and Auto Differential Followup six months, labs prior, call concerns. Aneudy Rooney MD [1] Allergies Allergen Reactions Penicillins Anaphylaxis, Hives and Shortness of breath [2] Current Outpatient Medications on File Prior to Visit Medication Sig Dispense Refill guanFACINE (Tenex) 1 mg tablet Take 1 tablet (1 mg) by mouth once daily at bedtime. 30 tablet 2 [DISCONTINUED] guanFACINE (Tenex) 1 mg tablet Take 0.5 tablets (0.5 mg) by mouth once daily at bedtime. (Patient not taking: Reported on 11/15/2024) 7 tablet 0 No current facility-administered medications on file prior to visit. 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 Patient presents for periodic surveillance of chronic medical problems. Subjective Chelle Edward is a 53 y.o. male who presents for Follow-up. HPI Saw counselor for ADHD, and was confirmed diagnosis, June2022. Going to counseling there as well. Working on irritability. Working on testing for work and is difficult to concentrate. Stopped lexapro 20 mg , was on norvasc 5 mg for htn, colchine prn. Stopped all medications. States does not sleep well, 5-6 hours a night, wakes up every 2 hours to urinate. Drinks a gallon of sweet tea daily. Has had sleep studies done. Tried cpap. Has restless leg as well. Better with THC gummies at night. Can fall asleep , staying asleep is the issue. He is interested in guanfacine to treat the ADHD and htn, side effects discussed. Low vitamin D, recommend he take vitamin d 1000 international units daily along with a mvi Gout consider allopurinol if attacks Increase, states gets about twice a year. Review of Systems All other systems reviewed and are negative. . Allergies[1] Medications Ordered Prior to Encounter[2] Problem List[3] Objective Visit Vitals BP (!) 144/98 (BP Location: Left arm, Patient Position: Sitting) Pulse 64 Physical Exam Vitals and nursing note reviewed. Constitutional: General: He is not in acute distress. Appearance: Normal appearance. He is not toxic-appearing. HENT: Head: Normocephalic and atraumatic. Cardiovascular: Rate and Rhythm: Normal rate and regular rhythm. Heart sounds: No murmur heard. Pulmonary: Effort: Pulmonary effort is normal. Breath sounds: Normal breath sounds. Musculoskeletal: Cervical back: Neck supple. No rigidity. Comments: Skin: General: Skin is warm and dry. Neurological: General: No focal deficit present. Mental Status: He is alert and oriented to person, place, and time. Psychiatric: Mood and Affect: Mood normal. Behavior: Behavior normal. Orders Only on 10/14/2024 Component Date Value Ref Range Status URIC ACID 10/14/2024 8.9 (H) 4.0 - 8.0 mg/dL Final Comment: Therapeutic target for gout patients: <6.0 mg/dL Lab on 10/14/2024 Component Date Value Ref Range Status WBC 10/14/2024 6.7 4.4 - 11.3 x10*3/uL Final nRBC 10/14/2024 0.0 0.0 - 0.0 /100 WBCs Final RBC 10/14/2024 5.32 4.50 - 5.90 x10*6/uL Final Hemoglobin 10/14/2024 14.9 13.5 - 17.5 g/dL Final Hematocrit 10/14/2024 46.6 41.0 - 52.0 % Final MCV 10/14/2024 88 80 - 100 fL Final MCH 10/14/2024 28.0 26.0 - 34.0 pg Final MCHC 10/14/2024 32.0 32.0 - 36.0 g/dL Final RDW 10/14/2024 13.6 11.5 - 14.5 % Final Platelets 10/14/2024 248 150 - 450 x10*3/uL Final Neutrophils % 10/14/2024 58.9 40.0 - 80.0 % Final Immature Granulocytes %, Automated 10/14/2024 0.3 0.0 - 0.9 % Final Immature Granulocyte Count (IG) includes promyelocytes, myelocytes and metamyelocytes but does not include bands. Percent differential counts (%) should be interpreted in the context of the absolute cell counts (cells/UL). Lymphocytes % 10/14/2024 30.0 13.0 - 44.0 % Final Monocytes % 10/14/2024 7.5 2.0 - 10.0 % Final Eosinophils % 10/14/2024 2.4 0.0 - 6.0 % Final Basophils % 10/14/2024 0.9 0.0 - 2.0 % Final Neutrophils Absolute 10/14/2024 3.96 1.20 - 7.70 x10*3/uL Final Percent differential counts (%) should be interpreted in the context of the absolute cell counts (cells/uL). Immature Granulocytes Absolute, Au* 10/14/2024 0.02 0.00 - 0.70 x10*3/uL Final Lymphocytes Absolute 10/14/2024 2.01 1.20 - 4.80 x10*3/uL Final Monocytes Absolute 10/14/2024 0.50 0.10 - 1.00 x10*3/uL Final Eosinophils Absolute 10/14/2024 0.16 0.00 - 0.70 x10*3/uL Final Basophils Absolute 10/14/2024 0.06 0.00 - 0.10 x10*3/uL Final Glucose 10/14/2024 89 74 - 99 mg/dL Final Sodium 10/14/2024 138 136 - 145 mmol/L Final Potassium 10/14/2024 4.0 3.5 - 5.3 mmol/L Final Chloride 10/14/2024 103 98 - 107 mmol/L Final Bicarbonate 10/14/2024 29 21 - 32 mmol/L Final Anion Gap 10/14/2024 10 10 - 20 mmol/L Final Urea Nitrogen 10/14/2024 16 6 - 23 mg/dL Final Creatinine 10/14/2024 1.18 0.50 - 1.30 mg/dL Final eGFR 10/14/2024 74 >60 mL/min/1.73m*2 Final Calculations of estimated GFR are performed using the 2020 CKD-EPI Study Refit equation without the race variable for the IDMS-Traceable creatinine methods. https://jasn.asnjournals.org/cont ent/early//ASN.69780800 88 Calcium 10/14/2024 8.9 8.6 - 10.3 mg/dL Final Albumin 10/14/2024 4.1 3.4 - 5.0 g/dL Final Alkaline Phosphatase 10/14/2024 76 33 - 120 U/L Final Total Protein 10/14/2024 7.2 6.4 - 8.2 g/dL Final AST 10/14/2024 22 9 - 39 U/L Final Bilirubin, Total 10/14/2024 1.2 0.0 - 1.2 mg/dL Final ALT 10/14/2024 19 10 - 52 U/L Final Patients treated with Sulfasalazine may generate falsely decreased results for ALT. Iron 10/14/2024 56 35 - 150 ug/dL Final UIBC 10/14/2024 330 110 - 370 ug/dL Final TIBC 10/14/2024 386 240 - 445 ug/dL Final % Saturation 10/14/2024 15 (L) 25 - 45 % Final Vitamin B12 10/14/2024 405 211 - 911 pg/mL Final Vitamin D, 25-Hydroxy, Total 10/14/2024 22 (L) 30 - 100 ng/mL Final Assessment/Plan Problem List Items Addressed This Visit HTN (hypertension) - Primary Relevant Medications guanFACINE (Tenex) 1 mg tablet guanFACINE (Tenex) 1 mg tablet History of gastric bypass Vitamin D deficiency Idiopathic chronic gout of multiple sites without tophus Other Visit Diagnoses Other specified attention deficit hyperactivity disorder (ADHD) Relevant Medications guanFACINE (Tenex) 1 mg tablet guanFACINE (Tenex) 1 mg tablet Follow up 3-4 weeks. Aneudy Rooney MD [1] Allergies Allergen Reactions Penicillins Anaphylaxis, Hives and Shortness of breath [2] Current Outpatient Medications on File Prior to Visit Medication Sig Dispense Refill [DISCONTINUED] amLODIPine (Norvasc) 5 mg tablet Take 1 tablet (5 mg) by mouth once daily. (Patient not taking: Reported on 10/18/2024) 30 tablet 5 [DISCONTINUED] colchicine 0.6 mg tablet Take 1 tablet (0.6 mg) by mouth 2 times a day as needed for muscle/joint pain (twice daily until flare resolves). (Patient not taking: Reported on 10/18/2024) 60 tablet 0 [DISCONTINUED] ergocalciferol (Vitamin D-2) 1.25 MG (29094 UT) capsule One cap twice a week. (Patient not taking: Reported on 10/18/2024) [DISCONTINUED] escitalopram (Lexapro) 20 mg tablet Take 1 tablet (20 mg) by mouth once daily. (Patient not taking: Reported on 10/18/2024) 30 tablet 2 No current facility-administered medications on file prior to visit. 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 Author Type: Nurse Practitioner Type: Progress Notes Filed: 07/05/2024 18:16 Note Text: [facility] Subjective Chelle Mohan is a 53 year old male. Patient presents with: Finger Pain: left pinky finger pain x 1 week 53 year old male with PMH HTN, RLS, and OA presents for finger complaints Acute onset one week ago Left little finger +swelling +pain Reduced and limited ROM The history is provided by the patient. No radio interference supervisor was used. PAST MEDICAL HISTORY Diagnosis Date Allergy-induced asthma 10/31/2014 Backache, unspecified 01/17/2006 CLUSTER HEADACHES 06/18/2005 DEPRESSIVE DISORDER NEC 01/17/2006 Embolism and thrombosis of unspecified site Esophageal reflux Generalized osteoarthrosis, unspecified site Hypertensive kidney disease, benign Insomnia, unspecified 06/07/2008 Left leg pain 03/30/2013 Lumbago Lumbar disc herniation 03/30/2013 Lumbar radicular pain 03/30/2013 Malabsorption syndrome 10/31/2014 Obesity, unspecified 04/18/2006 KEI (obstructive sleep apnea) Other and unspecified hyperlipidemia Other chest pain Peptic ulcer, unspecified site, unspecified as acute or chronic, without mention of hemorrhage or perforation Peptic ulcer, unspecified site, unspecified as acute or chronic, without mention of hemorrhage, perforation, or obstruction 12/31/2006 Restless leg syndrome 10/27/2010 S/P gastric bypass 03/19/2013 Vitamin D deficiency 08/10/2013 PAST SURGICAL HISTORY Procedure Laterality Date EGD 1979, 2007 HERNIA REPAIR W/MESH 12/07/15 incisional LAPS GSTR RSTCV PX W/BYP LAKIA-EN-Y LIMB <150 CM 2007 PAST SURGICAL HISTORY OF dental extraction ALLERGIES Penicillins MEDICATIONS ergocalciferol, vitamin D2, (VITAMIN D) 50,000 unit capsule One cap twice a week. gabapentin (NEURONTIN) 600 mg tablet Take 1 tablet by mouth daily at bedtime for 11 days. (Patient not taking: Reported on 07/05/2024) rOPINIRole (REQUIP) 1 mg tablet Take 1 tablet by mouth daily at bedtime. (Patient not taking: Reported on 07/05/2024) Hydrochlorothiazide 12.5 mg capsule Take 1 capsule by mouth once daily. (Patient not taking: Reported on 07/05/2024) losartan (COZAAR) 100 mg tablet Take 1 tablet by mouth once daily. FLUoxetine HCl (PROZAC) 40 mg capsule Take 1 capsule by mouth once daily. (Patient not taking: Reported on 07/05/2024) traMADol (ULTRAM) 50 mg tablet Take 1 tablet by mouth twice daily as needed. (Patient not taking: Reported on 07/05/2024) cyanocobalamin (VITAMIN B-12) 1,000 mcg tab Take 1 tablet by mouth once daily. (Patient not taking: Reported on 07/05/2024) FAMILY HISTORY Problem Relation Age of Onset Psychiatry Mother depression Coronary Artery Disease Maternal Grandmother late 50's Coronary Artery Disease Maternal Grandfather late 50's Coronary Artery Disease Maternal Aunt late 50's Diabetes Maternal Grandmother Hypertension Mother Social History Tobacco Use Smoking status: Never Smokeless tobacco: Never Substance Use Topics Alcohol use: Yes Comment: occasional Drug use: No Review of Systems Objective BP 130/82 Pulse 90 Temp 36.4 ?C (97.6 ?F) Resp 16 Wt (!) 147.7 kg (325 lb 9.9 oz) SpO2 98% BMI 46.72 kg/m? Physical Exam Vitals and nursing note reviewed. Constitutional: General: He is not in acute distress. Appearance: Normal appearance. He is not ill-appearing, toxic-appearing or diaphoretic. HENT: Head: Normocephalic and atraumatic. Right Ear: External ear normal. Left Ear: External ear normal. Nose: Nose normal. No congestion or rhinorrhea. Mouth/Throat: Mouth: Mucous membranes are moist. Pharynx: Oropharynx is clear. No oropharyngeal exudate or posterior oropharyngeal erythema. Eyes: General: Right eye: No discharge. Left eye: No discharge. Extraocular Movements: Extraocular movements intact. Conjunctiva/sclera: Conjunctivae normal. Pupils: Pupils are equal, round, and reactive to light. Cardiovascular: Rate and Rhythm: Normal rate and regular rhythm. Pulses: Normal pulses. Heart sounds: Normal heart sounds. No murmur heard. No friction rub. No gallop. Pulmonary: Effort: Pulmonary effort is normal. No respiratory distress. Breath sounds: Normal breath sounds. No stridor. No wheezing, rhonchi or rales. Chest: Chest wall: No tenderness. Abdominal: General: Abdomen is flat. There is no distension. Palpations: Abdomen is soft. There is no mass. Tenderness: There is no abdominal tenderness. There is no guarding or rebound. Hernia: No hernia is present. Musculoskeletal: General: Tenderness present. No swelling, deformity or signs of injury. Normal range of motion. Cervical back: Normal range of motion and neck supple. No rigidity or tenderness. Right lower leg: No edema. Left lower leg: No edema. Comments: Diffuse uniform swelling right little finger +tenderness al (more content not included)... [facility] 07-05-2024 History of Present illness Narrative [facility] Subjective Chelle Mohan is a 53 year old male. Patient presents with: Finger Pain: left pinky finger pain x 1 week 53 year old male with PMH HTN, RLS, and OA presents for finger complaints Acute onset one week ago Left little finger +swelling +pain Reduced and limited ROM The history is provided by the patient. No radio interference supervisor was used. PAST MEDICAL HISTORY Diagnosis Date Allergy-induced asthma 10/31/2014 Backache, unspecified 01/17/2006 CLUSTER HEADACHES 06/18/2005 DEPRESSIVE DISORDER NEC 01/17/2006 Embolism and thrombosis of unspecified site Esophageal reflux Generalized osteoarthrosis, unspecified site Hypertensive kidney disease, benign Insomnia, unspecified 06/07/2008 Left leg pain 03/30/2013 Lumbago Lumbar disc herniation 03/30/2013 Lumbar radicular pain 03/30/2013 Malabsorption syndrome 10/31/2014 Obesity, unspecified 04/18/2006 KEI (obstructive sleep apnea) Other and unspecified hyperlipidemia Other chest pain Peptic ulcer, unspecified site, unspecified as acute or chronic, without mention of hemorrhage or perforation Peptic ulcer, unspecified site, unspecified as acute or chronic, without mention of hemorrhage, perforation, or obstruction 12/31/2006 Restless leg syndrome 10/27/2010 S/P gastric bypass 03/19/2013 Vitamin D deficiency 08/10/2013 PAST SURGICAL HISTORY Procedure Laterality Date EGD 2007 HERNIA REPAIR W/MESH 12/07/15 incisional LAPS GSTR RSTCV PX W/BYP LAKIA-EN-Y LIMB <150 CM 2007 PAST SURGICAL HISTORY OF dental extraction ALLERGIES Penicillins MEDICATIONS ergocalciferol, vitamin D2, (VITAMIN D) 50,000 unit capsule One cap twice a week. gabapentin (NEURONTIN) 600 mg tablet Take 1 tablet by mouth daily at bedtime for 11 days. (Patient not taking: Reported on 07/05/2024) rOPINIRole (REQUIP) 1 mg tablet Take 1 tablet by mouth daily at bedtime. (Patient not taking: Reported on 07/05/2024) Hydrochlorothiazide 12.5 mg capsule Take 1 capsule by mouth once daily. (Patient not taking: Reported on 07/05/2024) losartan (COZAAR) 100 mg tablet Take 1 tablet by mouth once daily. FLUoxetine HCl (PROZAC) 40 mg capsule Take 1 capsule by mouth once daily. (Patient not taking: Reported on 07/05/2024) traMADol (ULTRAM) 50 mg tablet Take 1 tablet by mouth twice daily as needed. (Patient not taking: Reported on 07/05/2024) cyanocobalamin (VITAMIN B-12) 1,000 mcg tab Take 1 tablet by mouth once daily. (Patient not taking: Reported on 07/05/2024) FAMILY HISTORY Problem Relation Age of Onset Psychiatry Mother depression Coronary Artery Disease Maternal Grandmother late 50's Coronary Artery Disease Maternal Grandfather late 50's Coronary Artery Disease Maternal Aunt late 50's Diabetes Maternal Grandmother Hypertension Mother Social History Tobacco Use Smoking status: Never Smokeless tobacco: Never Substance Use Topics Alcohol use: Yes Comment: occasional Drug use: No Review of Systems Objective BP 130/82 Pulse 90 Temp 36.4 C (97.6 F) Resp 16 Wt (!) 147.7 kg (325 lb 9.9 oz) SpO2 98% BMI 46.72 kg/m Physical Exam Vitals and nursing note reviewed. Constitutional: General: He is not in acute distress. Appearance: Normal appearance. He is not ill-appearing, toxic-appearing or diaphoretic. HENT: Head: Normocephalic and atraumatic. Right Ear: External ear normal. Left Ear: External ear normal. Nose: Nose normal. No congestion or rhinorrhea. Mouth/Throat: Mouth: Mucous membranes are moist. Pharynx: Oropharynx is clear. No oropharyngeal exudate or posterior oropharyngeal erythema. Eyes: General: Right eye: No discharge. Left eye: No discharge. Extraocular Movements: Extraocular movements intact. Conjunctiva/sclera: Conjunctivae normal. Pupils: Pupils are equal, round, and reactive to light. Cardiovascular: Rate and Rhythm: Normal rate and regular rhythm. Pulses: Normal pulses. Heart sounds: Normal heart sounds. No murmur heard. No friction rub. No gallop. Pulmonary: Effort: Pulmonary effort is normal. No respiratory distress. Breath sounds: Normal breath sounds. No stridor. No wheezing, rhonchi or rales. Chest: Chest wall: No tenderness. Abdominal: General: Abdomen is flat. There is no distension. Palpations: Abdomen is soft. There is no mass. Tenderness: There is no abdominal tenderness. There is no guarding or rebound. Hernia: No hernia is present. Musculoskeletal: General: Tenderness present. No swelling, deformity or signs of injury. Normal range of motion. Cervical back: Normal range of motion and neck supple. No rigidity or tenderness. Right lower leg: No edema. Left lower leg: No edema. Comments: Diffuse uniform swelling right little finger +tenderness along sheath Unable to perform full ROM +erythema Lymphadenopathy: Cervical: No cervical adenopathy. Skin: General: Skin is warm and dry. Capillary Refill: Capillary refill takes less than 2 seconds. Coloration: Skin is not jaundiced or pale. Findings: No bruising, lesion or rash. Neurological: General: No focal deficit present. Mental Status: He is alert and oriented to person, place, and time. Cranial Nerves: No cranial nerve deficit. Sensory: No sensory deficit. Motor: No weakness. Coordination: Coordination normal. Gait: Gait normal. Deep Tendon Reflexes: Reflexes normal. Psychiatric: Mood and Affect: Mood normal. Behavior: Behavior normal. Thought Content: Thought content normal. {ASSESSMENT/PLAN: 1. Swelling of finger - ICD9: 729.81, ICD10: M79.89 Diffuse uniform swelling right little finger +tenderness along sheath Unable to perform full ROM +erythema Denies trauma or injury, Concerns for possible flexor tenosynovitis Jim Rodríguez APRN.NO[employer] MDM Procedures documented in this encounter [facility] 04-09-2024 History of Present illness Narrative Med follow up Subjective Chelle Edward is a 53 y.o. male who presents for Follow-up. HPI Follow up restless leg. Having side effects from lyrica. States hasn't slept in weekso n the lyrica. States 30 years ago was diagnosed with anxiety, didn't feel really had depression. He wonders if he actually has ADHD, and that is why the medicines have never worked great. Since last visit he stopped lexapro and lyrica and the restless leg got worse. Had sleep study estimate five years ago. Had gastric bypass 20 years ago. Taking vitamin D, discussed recommend mvi with iron. Htn, stable on current regimen Review of Systems Psychiatric/Behavioral: Negative for suicidal ideas. All other systems reviewed and are negative. . Allergies Allergen Reactions Penicillins Anaphylaxis, Hives and Shortness of breath Current Outpatient Medications on File Prior to Visit Medication Sig Dispense Refill amLODIPine (Norvasc) 5 mg tablet Take 1 tablet (5 mg) by mouth once daily. 30 tablet 5 colchicine 0.6 mg tablet Take 1 tablet (0.6 mg) by mouth 2 times a day as needed for muscle/joint pain (twice daily until flare resolves). 60 tablet 0 ergocalciferol (Vitamin D-2) 1.25 MG (58624 UT) capsule One cap twice a week. escitalopram (Lexapro) 20 mg tablet Take 1 tablet (20 mg) by mouth once daily. 30 tablet 2 indomethacin (Indocin) 25 mg capsule Take 2 capsules (50 mg) by mouth 3 times a day as needed (pain). With food 30 capsule 1 [DISCONTINUED] pregabalin (Lyrica) 150 mg capsule Take 1 capsule (150 mg) by mouth once daily at bedtime. 30 capsule 0 No current facility-administered medications on file prior to visit. 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 Constitutional: Appearance: He is obese. Pulmonary: Effort: Pulmonary effort is normal. Neurological: General: No focal deficit present. Mental Status: He is alert. Mental status is at baseline. Assessment/Plan Problem List Items Addressed This Visit HTN (hypertension) Relevant Orders CBC and Auto Differential Comprehensive Metabolic Panel Microscopic Only, Urine Albumin-Creatinine Ratio, Urine Random Iron and TIBC Vitamin B12 Vitamin D 25-Hydroxy,Total (for eval of Vitamin D levels) Restless leg syndrome Anxiety - Primary Relevant Orders Referral to Psychiatry History of gastric bypass Relevant Orders CBC and Auto Differential Comprehensive Metabolic Panel Microscopic Only, Urine Albumin-Creatinine Ratio, Urine Random Iron and TIBC Vitamin B12 Vitamin D 25-Hydroxy,Total (for eval of Vitamin D levels) Recommend updating sleep study, and or seeing sleep specialists. Discussed sleep disorders can cause mood disorders. Also consider mental health referral, he prefers to get mental health referral first. Routine check up six months, labs prior, call concerns. Aneudy Rooney MD documented in this encounter [facility] Work Phone: 02-26-2024 History of Present illness Narrative Med follow up Patient presents for periodic surveillance of chronic medical problems. Subjective Chelle Edward is a 53 y.o. male who presents for Follow-up. HPI Followup anxiety and depression, doing well on this dose of lexapro HTN, off hydrochlorothiazide, which has had no gout flares since then, recommend start amlodipine 5 mg daily, side effects discussed, monitor bp and fup in a month or so Restless leg, normal cbc with labs he had done through work recently, states is really terrible lately, saw a neurologist in [place] for same after sleep study , was on ropirinole and gabapentin , but the ropirinole upset his stomach. Discussed a trial of lyrica 50 mg, can increase to 100 mg after a week if needed, discussed controlled substance implications, side effects , risks, and if this does not help recommend we get him to a sleep specialist. [place] reviewed and appropriate, if going to be retirement will get controlled substance agreement at follow up. Ears have been bothering him, wears ear plugs at work, using otc ear drops. Review of Systems All other systems reviewed and are negative. . Allergies Allergen Reactions Penicillins Anaphylaxis, Hives and Shortness of breath Current Outpatient Medications on File Prior to Visit Medication Sig Dispense Refill colchicine 0.6 mg tablet Take 1 tablet (0.6 mg) by mouth 2 times a day as needed for muscle/joint pain (twice daily until flare resolves). 60 tablet 0 ergocalciferol (Vitamin D-2) 1.25 MG (16607 UT) capsule One cap twice a week. escitalopram (Lexapro) 20 mg tablet Take 1 tablet (20 mg) by mouth once daily. 30 tablet 2 gabapentin (Neurontin) 600 mg tablet TAKE 1 TABLET BY MOUTH DAILY AT BEDTIME 30 tablet 2 indomethacin (Indocin) 25 mg capsule Take 2 capsules (50 mg) by mouth 3 times a day as needed (pain). With food 30 capsule 1 No current facility-administered medications on file prior to visit. 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 HENT: Head: Normocephalic. Right Ear: Ear canal and external ear normal. There is impacted cerumen. Left Ear: Ear canal and external ear normal. There is impacted cerumen. Pulmonary: Effort: Pulmonary effort is normal. Neurological: General: No focal deficit present. Mental Status: He is alert. Psychiatric: Mood and Affect: Mood normal. Assessment/Plan Problem List Items Addressed This Visit HTN (hypertension) Relevant Medications amLODIPine (Norvasc) 5 mg tablet Restless leg syndrome Anxiety 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) - Primary Other Visit Diagnoses Bilateral impacted cerumen As above, per hpi, Call concerns. Followup 1 mos, declines for now nurse appt for ear flush. Aneudy Rooney MD documented in this encounter [facility] Work Phone: 02-02-2024 History of Present illness Narrative Follow up Subjective Chelle Edward is a 53 y.o. male who presents for Follow-up HPI Followup starting lexapro 10 for major depression. Feels better, not crying as much. Wants to increase the dose to 20 mg and will follow up in a few weeks. Has noticed some blurred vision, states might be his allergies that have flared since moving back from [place]. Plans to make eye appt, will monitor. Review of Systems All other systems reviewed and are negative. . Allergies Allergen Reactions Penicillins Anaphylaxis, Hives and Shortness of breath Current Outpatient Medications on File Prior to Visit Medication Sig Dispense Refill colchicine 0.6 mg tablet Take 1 tablet (0.6 mg) by mouth 2 times a day as needed for muscle/joint pain (twice daily until flare resolves). 60 tablet 0 ergocalciferol (Vitamin D-2) 1.25 MG (00378 UT) capsule One cap twice a week. gabapentin (Neurontin) 600 mg tablet TAKE 1 TABLET BY MOUTH DAILY AT BEDTIME 30 tablet 2 indomethacin (Indocin) 25 mg capsule Take 2 capsules (50 mg) by mouth 3 times a day as needed (pain). With food 30 capsule 1 [DISCONTINUED] escitalopram (Lexapro) 10 mg tablet Take 1 tablet (10 mg) by mouth once daily. 30 tablet 2 No current facility-administered medications on file prior to visit. 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 HENT: Head: Normocephalic. Neurological: General: No focal deficit present. Mental Status: He is alert. Psychiatric: Attention and Perception: Attention normal. Mood and Affect: Mood normal. Speech: Speech normal. Behavior: Behavior normal. Behavior is cooperative. Thought Content: Thought content normal. Cognition and Memory: Cognition normal. Judgment: Judgment normal. Assessment/Plan Problem List Items Addressed This Visit Anxiety Relevant Medications escitalopram (Lexapro) 20 mg tablet 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) - Primary Relevant Medications escitalopram (Lexapro) 20 mg tablet Follow up 3-4 weeks. Aneudy Rooney MD documented in this encounter [facility] Work Phone: 01-14-2024 History of Present illness Narrative Follow up labs Patient presents for periodic surveillance of chronic medical problems. Subjective Chelle Edward is a 53 y.o. male who presents for Follow-up. HPI Htn, stablem no current meds Restless leg, states not well controlled on current regimen, used to take gabapentin and mirapex, did not tolerate the mirapex, reviewed labs, normal cbc Anxiety, stopped prozac two months ago, states has been taking for over 20 years with varying doses and did not feel was helping, he states he feels no different off of it, interested in treatment, tearful, doesn't enjoy things he would normally enjoy, and denies suicidal ideations. Discussed overlap with major depression, and lexapro and effexor as treatment options, opted to start with lexapro and close followup Gout, stable on current regimen High triglycerides states eating a lot of junk food lately Review of Systems All other systems reviewed and are negative. . Allergies Allergen Reactions Penicillins Anaphylaxis, Hives and Shortness of breath Current Outpatient Medications on File Prior to Visit Medication Sig Dispense Refill colchicine 0.6 mg tablet Take 1 tablet (0.6 mg) by mouth 2 times a day as needed for muscle/joint pain (twice daily until flare resolves). 60 tablet 0 ergocalciferol (Vitamin D-2) 1.25 MG (60089 UT) capsule One cap twice a week. gabapentin (Neurontin) 600 mg tablet TAKE 1 TABLET BY MOUTH DAILY AT BEDTIME 30 tablet 2 indomethacin (Indocin) 25 mg capsule Take 2 capsules (50 mg) by mouth 3 times a day as needed (pain). With food 30 capsule 1 [DISCONTINUED] FLUoxetine (PROzac) 20 mg capsule Take 1 capsule (20 mg) by mouth once daily. No current facility-administered medications on file prior to visit. Patient Active Problem List Diagnosis HTN (hypertension) Restless leg syndrome Anxiety History of gastric bypass Lactose intolerance Reactive hypoglycemia Vitamin D deficiency 10 year risk of GA or stroke < 7.5% Idiopathic chronic gout of multiple sites without tophus Objective Visit Vitals BP 130/88 (BP Location: Left arm, Patient Position: Sitting) Pulse 64 Physical Exam Vitals and nursing note reviewed. Constitutional: General: He is not in acute distress. Appearance: Normal appearance. He is not toxic-appearing. HENT: Head: Normocephalic and atraumatic. Cardiovascular: Rate and Rhythm: Normal rate and regular rhythm. Heart sounds: No murmur heard. Pulmonary: Effort: Pulmonary effort is normal. Breath sounds: Normal breath sounds. Musculoskeletal: Cervical back: Neck supple. No rigidity. Comments: Skin: General: Skin is warm and dry. Neurological: General: No focal deficit present. Mental Status: He is alert and oriented to person, place, and time. Psychiatric: Mood and Affect: Mood normal. Behavior: Behavior normal. Assessment/Plan Problem List Items Addressed This Visit HTN (hypertension) Restless leg syndrome Anxiety - Primary Relevant Medications escitalopram (Lexapro) 10 mg tablet History of gastric bypass Idiopathic chronic gout of multiple sites without tophus Other Visit Diagnoses 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) Relevant Medications escitalopram (Lexapro) 10 mg tablet Add lexapro, followup in a few weeks. Leave rls meds as is for now, consider changing depending on response to SSRI, Call concerns. Side effects discussed Reviewed labs from [facility] dated 01/08 Aneudy Rooney MD documented in this encounter [facility] Work Phone: 07-15-2023 History of Present illness Narrative 3 week follow up Patient presents for periodic surveillance of chronic medical problems. Subjective Chelle Edward is a 52 y.o. male who presents for Follow-up. HPI Followup labs. HTN< on hydrochlorothiazide, also has elevated uric acid/gout. Discussed stop hydrochlorothiazide, monitor bp at home, and if elevated will call. Recheck uric acid off of the medication at follow up Restless leg. Found marijuana helps quite a bit when in [place], considering looking into medical marijuana for same, has been on requip in past and had digestive side effects that made it intolerable. Also discussed mirapex as an option Vitamin D deficiency, level 29, on supplement Borderline tsh, normal t4, will monitor States no problems or concerns, Gout symptoms better, not gone Discussed diet, states drinks 3/4 gallon sweet tea daily, discussed health risks of same. Review of Systems All other systems reviewed and are negative. . Objective Visit Vitals BP 118/80 Pulse 79 Physical Exam Vitals and nursing note reviewed. Constitutional: General: He is not in acute distress. Appearance: Normal appearance. He is not toxic-appearing. HENT: Head: Normocephalic and atraumatic. Cardiovascular: Rate and Rhythm: Normal rate and regular rhythm. Heart sounds: No murmur heard. Pulmonary: Effort: Pulmonary effort is normal. Breath sounds: Normal breath sounds. Musculoskeletal: Cervical back: Neck supple. No rigidity. Comments: Skin: General: Skin is warm and dry. Neurological: General: No focal deficit present. Mental Status: He is alert and oriented to person, place, and time. Psychiatric: Mood and Affect: Mood normal. Behavior: Behavior normal. Assessment/Plan Problem List Items Addressed This Visit HTN (hypertension) Restless leg syndrome - Primary Relevant Orders Comprehensive Metabolic Panel Hemoglobin A1C TSH with reflex to Free T4 if abnormal Uric acid Acute idiopathic gout of left foot Vitamin D deficiency Relevant Orders Comprehensive Metabolic Panel Hemoglobin A1C TSH with reflex to Free T4 if abnormal Uric acid Follow up six months, labs prior. Stop hydrochlorothiazide and monitor bp. Call concerns. Aneudy Rooney MD documented in this encounter [facility] Work Phone: 06-24-2023 History of Present illness Narrative Subjective Patient ID: JA Mohan is a 52 y.o. male who presents for establishing primary care. Medication refill. Only gabapentin will need refills. All rest are through his work HPI Review of Systems Objective There were no vitals taken for this visit. Physical Exam Assessment/Plan Patient presents for periodic surveillance of chronic medical problems. Subjective Chelle Edward is a 52 y.o. male who presents for No chief complaint on file.. HPI New patient. History of gout, flared currently , left foot, middle toe History of hypertension, states just restarted medication about two weeks ago Restless leg, has been on gabapentin, used to also be on requip but upset his stomach, wonders about other options Anxiety, stable on prozac, states has been on for probably 20 years agso S/p gastric bypass in 2006, on vitamin D since that time States no history of kidney disease that he is aware. Review of Systems All other systems reviewed and are negative. . Objective Visit Vitals BP 134/86 (BP Location: Left arm, Patient Position: Sitting, BP Cuff Size: Adult) Pulse 70 Physical Exam Vitals and nursing note reviewed. Constitutional: General: He is not in acute distress. Appearance: Normal appearance. He is not toxic-appearing. HENT: Head: Normocephalic and atraumatic. Cardiovascular: Rate and Rhythm: Normal rate and regular rhythm. Pulmonary: Effort: Pulmonary effort is normal. Breath sounds: Normal breath sounds. Abdominal: Palpations: Abdomen is soft. Musculoskeletal: Comments: Gait with mild limp Skin: General: Skin is warm and dry. Neurological: General: No focal deficit present. Mental Status: He is alert and oriented to person, place, and time. Psychiatric: Mood and Affect: Mood normal. Behavior: Behavior normal. Assessment/Plan Problem List Items Addressed This Visit HTN (hypertension) - Primary Relevant Orders CBC and Auto Differential Comprehensive Metabolic Panel Lipid Panel Microscopic Only, Urine Albumin , Urine Random Restless leg syndrome Acute idiopathic gout of left foot Relevant Medications indomethacin (Indocin) 25 mg capsule Other Relevant Orders Uric acid History of gastric bypass Relevant Orders Vitamin B12 Vitamin D deficiency Relevant Orders Vitamin D 25-Hydroxy,Total (for eval of Vitamin D levels) Other Visit Diagnoses BMI 40.0-44.9, adult ([facility]) Relevant Orders Hemoglobin A1C TSH with reflex to Free T4 if abnormal Aneudy Rooney MD documented in this encounter [facility] Work Phone: 06-24-2023 Instructions Aneudy Rooney MD - 06/24/2023 8:20 AM EDT Follow up in a few weeks after baseline labs. Call concerns. Reviewed office policies/procedures including availability of same day appts, and how to contact fire prevention officer provider after hours. documented in this encounter [facility] Work Phone: 06-03-2023 Miscellaneous Notes Pt notified. Delano Castrejon LPN Let patient know my practice is closed and has been closed since 02/2022. Patient calling asking if you would take him back as a patient? He moved to [place] and moved back to [place] a month ago. He has not been seen by you since 2014. Please advise documented in this encounter [facility] Evaluation note Diagnosis Primary hypertension- Primary Unspecified essential hypertension Restless leg syndrome Restless legs syndrome (RLS) History of gastric bypass Acute idiopathic gout of left foot BMI 40.0-44.9, adult ([facility]/HCC) Vitamin D deficiency documented in this encounter [facility] Work Phone: Evaluation note* Diagnosis Restless leg syndrome- Primary Restless legs syndrome (RLS) Vitamin D deficiency Primary hypertension Unspecified essential hypertension Acute idiopathic gout of left foot documented in this encounter [facility] Work Phone: Evaluation note* Diagnosis Anxiety- Primary Anxiety state, unspecified 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) History of gastric bypass Primary hypertension Unspecified essential hypertension Idiopathic chronic gout of multiple sites without tophus Restless leg syndrome Restless legs syndrome (RLS) documented in this encounter [facility] Work Phone: Evaluation note* Diagnosis 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)- Primary Anxiety Anxiety state, unspecified documented in this encounter [facility] Work Phone: Evaluation note* Diagnosis 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)- Primary Anxiety Anxiety state, unspecified Bilateral impacted cerumen Impacted cerumen Restless leg syndrome Restless legs syndrome (RLS) Primary hypertension Unspecified essential hypertension documented in this encounter [facility] Work Phone: Evaluation note* Diagnosis Anxiety- Primary Anxiety state, unspecified Restless leg syndrome Restless legs syndrome (RLS) Primary hypertension Unspecified essential hypertension History of gastric bypass documented in this encounter [facility] Work Phone: Evaluation noteNo assessment information available [facility] Work Phone: Evaluation note* Diagnosis Swelling of finger- Primary Swelling of limb [facility] Primary hypertension- Primary Unspecified essential hypertension Other specified attention deficit hyperactivity disorder (ADHD) Vitamin D deficiency Idiopathic chronic gout of multiple sites without tophus History of gastric bypass documented in this encounter [facility] Work Phone: Evaluation note* Diagnosis Restless leg syndrome- Primary Restless legs syndrome (RLS) Primary hypertension Unspecified essential hypertension documented in this encounter [facility] Work Phone: Hospital Discharge instructions Additional Instructions Follow-up with Dr. Mosley, return for any worsening symptoms, fevers, or chills. [facility] Work Phone: Reason for referral (narrative)No reason for referral information availableWLakeHealth [facility] Work Phone: Chief Complaint and Reason for Visit Chief Complaint Admit Date FINGER PAIN July 05, 2024 6:4 0pm Advance Directives No Advanced Directives Records Found Advance Directive Response Recorded Date/ Time Living Will No July 05, 2024 6:45pm Do you have a Healthcare Power of Commercial Collections Specialist? No July 05, 2024 6:45pm Summary Purpose Family History No Family History Records FoundNo Family History Records FoundNo Family History Records FoundNo Family History Records FoundNo Family History Records Found Additional Source Comments Source Comments (unrecognize d section and content) In the event this informatio n is protected by the Federal Confidentiality of Alcohol and Drug Abuse Patient Records regulations: The Federal rules restrict any use of the information to criminally investigate or prosecute any alcohol or drug abuse patient.[facility] the event this information is protected by the Federal Confidentiality of Alcohol and Drug Abuse Patient Records regulations: The Federal rules restrict any use of the information to criminally investigate or prosecute any alcohol or drug abuse patient.[facility] Reason for Visit (unrecogniz ed section and content) Reason Comments Patient Question Reason Comments Follow-up Reason Comments Follow-up Reason Comments Finger Pain left pinky finger pa in x 1 week Care Teams (unrecognized sec tion and content) [employer] Supervisor Relationship Specialty Start Date End Date Aneudy Rooney MD [address] [facility] [place] [address] PCP - General Family Medicine 06/24/23 [employer] Supervisor Relationship Specialty Start Date End Date Aneudy Rooney MD [address] [facility] [place] [address] PCP - General Family Medicine 06/24/23 [employer] Supervisor Relationship Specialty Start Date End Date Aneudy Rooney MD [address] [address] PCP - General Family Medicine 06/24/23 [employer] Supervisor Relationship Specialty Start Date End Date Aneudy Rooney MD [address] [address] PCP - General Family Medicine 06/24/23 [employer] Supervisor Relationship Specialty Start Date End Date Aneudy Rooney MD [address] [address] PCP - General Family Medicine 06/24/23 [employer] Supervisor Relationship Specialty Start Date End Date Aneudy Rooney MD [address] [address] PCP - General Family Medicine 06/24/23 Team Status: Active Member Role Status Dates Dr. Aneudy oRoney MD Primary Care Provider Active Team Status: Inactive Member Role Status Dates Dr. Aneudy Rooney MD Primary Care Provider Active Start: July 05, 2024 End: July 05, 2024 Dr. Rupal Altman , DO Referring Provider Active S tart: July 05, 2024 End: July 05, 2024 Dr. Rupal Altman , DO Emergency Provider Active S tart: July 05, 2024 End: July 05, 2024 [employer] Supervisor Relationship Specialty Start Date End Date Aneudy Rooney MD [address] [place] [address] PCP - General Family Medicine 07/05/24 [employer] Supervisor Relationship Specialty Start Date End Date Aneudy Rooney MD [address] [id number] PCP - General Family Medicine 06/24/23 [employer] Supervisor Relationship Specialty Start Date End Date Aneudy Rooney MD [address] [address] PCP - General Family Medicine 06/24/23 Goals (unrecognized section and content) Goals may be documented in a n alternate section (unrecognized sect ion and content) No Status Records FoundNo Status Records FoundNo Status Records FoundNo Status Records FoundNo Status Records Found INFORMATION SOURCE (unrecogn ized section and content) DATE CREATED AUTHOR 07/07/2024 [facility] DATE CREATED AUTHOR AUTHOR'S ORGANIZ ATION 10/18/2024 [facility] DATE CREATED AUTHOR AUTHOR'S ORGANIZ ATION 10/19/2024 [facility] DATE CREATED AUTHOR AUTHOR'S ORGANIZ ATION 11/15/2024 [facility] DATE CREATED AUTHOR AUTHOR'S ORGANIZ ATION 01/24/2025 [facility] FOR RECORDS PERTAINING TO PATIENTS WHO ARE OR HAVE BEEN ENROLLED IN A CHEMICAL DEPENDENCY/SUBSTANCEABUSE PROGRAM, SOME INFORMATION MAY BE OMITTED. This clinical summary was aggregated from multiple sources. Caution should be exercised in using it in the provision of clinical care. This summary normalizes information from multiple sources, and as a consequence, information in this document may materially change the coding, format and clinical context of patient data. In addition, data may be omitted in some cases. CLINICAL DECISIONS SHOULD BE BASED ON THE PRIMARY CLINICAL RECORDS. [employer] provides no warranty or guarantee of the accuracy or completeness of information in this document.
[2025-03-27 08:09] LABS: Pro- Brain NATRIURETIC PEPTIDE 40 pg/mL (<=900)
[2025-03-27 08:22] LABS: Differential Indicated SCAN CRITERIA MET
[2025-03-27 08:24] LABS: Differential Comment SCANNED; Red Cell Morphology NORM C+C NORMAL (NORM C&C)
[2025-03-27 09:12] VITALS: BP 158/90; PULSE 67; RESP 18; O2SAT 100
[2025-03-27 09:37] LABS: Mucous, Urine 0 SEEN /hpf (<or=2+); Red Blood Cells-Urine 0 SEEN /hpf (0-5); Squamous Epithelial Cells - UA 0 SEEN /hpf (0-5)
[2025-03-27 09:37] LABS: AST(SGOT) 21 U/L (<=37); Alanine Aminotransfer ALT/SGPT 15 U/L (<=46); Albumin, Serum 3.9 g/dL (3.5-5.0); Alkaline Phosphatase 77 U/L (40-129); Anion Gap 10 (5-15); BUN 15 mg/dL (4-19); BUN/Creat Ratio 12.7 RATIO (10-20); Calcium,Total 8.7 mg/dL (7.6-11.0); Carbon Dioxide 24.1 mmol/L (21.0-32.0); Chloride 103 mmol/L (98-108); Estimated Creatinine Clearance 104.84 ml/min (50-250); Globulin 3.7 g/dL (2.2-4.2); Glucose 93 mg/dL (70-99); Potassium 4.1 mmol/L (3.3-5.1); Troponin T High Sensitivity < 6 ng/L (<=22)
[2025-03-27 09:39] LABS: Color, Urine Yellow (Yellow); Glucose, Dipstick Normal (Normal); Ketone-Dipstick Negative (Negative); Leukocyte Esterase-Dipstick Negative /ul (Negative); Nitrite-Dipstick Negative (Negative); Occult Blood-Urine Negative /ul (Negative); Protein-Dipstick Negative (Negative); Specific Gravity, Urine 1.010 (1.002-1.030); Urine Bilirubin Dipstick Negative (Negative)
[2025-03-27 10:04] VITALS: BP 147/80; PULSE 57; RESP 18; TEMP 36.4; O2SAT 100
== END 2025-03-27 10:07 | disposition home or self-care (01) ==
PROVIDERS: Emergency Provider Surgery; PCP Family Medicine; Visit Provider Surgery
DX: I16.0 Hypertensive urgency (principal)
CPT/HCPCS: 70450; 71046; 80053; 81001; 83880; 84484; 85025; 93005; 96374; 99285; A4216